=== PATIENT | male | born 1970 | race Caucasian/White ===

== ENCOUNTER 2019-12-23 15:17 | Inpatient (IN) | payer BC, SELFPAY ==
--- NOTE | ~2019-12-23 | XR_ITS ---
EXAMINATION: XR chest 1V portable DATE: 12/23/2019 16:56 INDICATION: COVID-19 pneumonia. Dyspnea. TECHNIQUE: A single frontal view of the chest was obtained. COMPARISON: None. FINDINGS: Lung volumes are small. There are patchy airspace opacities involving all lung zones bilate rally, worst in right midlung zone. No pleural effusion or pneumothorax. The heart size is normal. IMPRESSION: 1. Diffuse lung disease, consistent with pneumonia. Reviewed, dictated and finalized at location A. TRICAL HIGH TENSION TESTER
--- NOTE | ~2019-12-23 | CT_ITS ---
EXAMINATION: CTA chest PE protocol EXAM DATE: 12/24/2019 16:04 INDICATION: Hypoxia, COVID, abnormal xray. TECHNIQUE: Spiral CTA of the chest (pulmonary arteries) was performed with 100 cc Omnipaque 350 intr avenous contrast injection. Images were acquired during the pulmonary arterial phase. Coronal maxi mum intensity projection 3D-reconstructions were created by the technologist on dedicated workstation . Axial, coronal and sagittal reformatted images were reviewed. The dose-length product (DLP) for t his examination was 1030.49 mGy-cm. The exposure was tailored according to patient size (auto mA ex posure control), and iterative reconstruction (ASIR) was used as additional dose reduction technique. Correlation is made to Chest x-ray same date. FINDINGS: There are no pulmonary emboli in the 1st through 3rd order (central and interlobar) pulmon linda arteries. Some loss of attenuation in the left basilar segmental pulmonary arteries due to respi ratory motion, but no intraluminal filling defects suspected. No thoracic aortic dissection. Moderate amount of bilateral, upper lobe predominant groundglass airspace disease with small regions of confluence. Most likely COVID-19 related findings given history provided. There are no pleural or pericardial effusions. Tracheobronchial tree is patent. There is no mediastinal, hilar or axillar y lymphadenopathy. There is no pneumothorax. Heart normal in size. No evidence of coronary kaye rial calcification. There is hepatic steatosis. There is thoracic spondylosis without osteoblastic or osteolytic lesions identified. IMPRESSION: 1. Moderate amount of bilateral groundglass opacities, smaller regions confluence. Probably COVID-19 . 2. No pulmonary emboli suspected. Reviewed, dictated and finalized at location A. VERY RECRUITER IMPRESSION: 1. Moderate amount of bilateral groundglass opacities, smaller regions conflue nce. Probably COVID-19. 2. No pulmonary emboli suspected.
--- NOTE | ~2019-12-23 | XR_ITS ---
EXAMINATION: XR chest 1V portable DATE: 12/30/2019 06:18 INDICATION: COVID-19 pneumonia. Shortness of breath. TECHNIQUE: A single frontal view of the chest was obtained. COMPARISON: Chest single view 12/23/2019, chest CT 12/24/2019 FINDINGS: There are airspace opacities in all lung zones bilaterally, worst in the lower lung zones. No pleural effusion or pneumothorax. The heart size is normal. IMPRESSION: 1. Diffuse lung disease with change in distribution in right lung, consistent with pneumonia. Reviewed, dictated and finalized at location A. IST CAMP ATTENDANT IMPRESSION: 1. Diffuse lung disease with change in distribution in right lung, consistent w ith pneumonia.
[2019-12-23 15:25] VITALS: BP 181/162; PULSE 106; RESP 18; TEMP 36.4; O2SAT 95
--- NOTE | 2019-12-23 15:32 | PC.NURSE ---
PT recived a neb treatment, prior to arrival by EMS
--- NOTE | 2019-12-23 15:36 | ED.SOB ---
HPI - SOB/Dyspnea General Chief Complaint: Shortness of Breath/Dyspnea Stated Complaint: SOB/COVID + Time Seen by Provider: 12/23/19 15:36 Source: patient Mode of arrival: ambulatory Limitations: no limitations History of Present Illness HPI Narrative: Patient is a 49-year-old with a history of hypertension who presents for evaluation of shortness of breath in the setting of recent Covid diagnosis. Patient reporting he became symptomatic on December 17, with positive test results called to him 2 days ago on Thursday. Patient reports shortness of breath and difficulty breathing. Patient states he has been monitoring his oxygen saturations at home with saturations ranging between 88 to 90%. He reports shortness of breath that worsens with exertion. He denies chest pain. Patient has been on steroids and azithromycin per his primary care physician. Patient reports intermittent fever, chills and nausea. Related Data Allergies Allergy/AdvReac Type Severity Reaction Status Date / Time No Known Allergies Allergy Unknown Unverified 01/04/08 07:16 Review of Systems Review of Systems: Narrative: CONSTITUTIONAL: Fever and chills EYES: Denies visual changes, redness, or discharge. ENT: Rhinorrhea and congestion CARDIOVASCULAR: Denies chest pain, palpitations, or edema. RESPIRATORY: Cough and shortness of breath GASTROINTESTINAL: Denies abdominal pain, nausea without vomiting GENITOURINARY: Denies dysuria or hematuria. SKIN: Denies rash or itching. MUSCULOSKELETAL: Denies back pain, joint pain, reporting myalgias NEUROLOGIC: Denies headache, numbness, or weakness. FOR[facility]LY [facility] Past Medical History Medical History (Updated 12/23/19 @ 18:16 by Ute Romero MD) Hypertension Family History Family History (Updated 09/07/15 @ 23:19 by DOCTOR UNKNOWN) Mother Hypertension Family history of diabetes mellitus in first degree relative Grandparent Hypertension Malignant neoplasm of prostate Family history of lung cancer Family history of coronary artery disease Diabetes mellitus Father Family history of coronary artery disease Other Family history of malignant neoplasm of kidney Social History Social History (Updated 12/23/19 @ 16:14 by Ute Romero MD) Smoking status: Never smoker Alcohol intake: current Substance use: never Living arrangements: with family Gender identity (if verbalized by the patient): Male Exam Narrative: Exam Narrative: GENERAL: Awake, alert, conversant HEAD: Normocephalic, atraumatic. EYES: PERRLA and EOMI. ENT: Nares clear, no rhinorrhea or epistaxis. Mucous membranes moist. NECK: Supple. CHEST: No respiratory distress, breathing even and non labored, dry cough present, no tachypnea HEART: Tachycardic rate, sinus rhythm ABDOMEN:Non distended, non tender EXTREMITIES: Normal range of motion. No edema. SKIN: Warm, dry, no rash. NEURO:No focal deficits. Alert and oriented x3 Course Vital Signs Vital signs: Vital Signs Temperature 36.4 C 12/23/19 15:25 Pulse Rate 106 H 12/23/19 15:25 Respiratory Rate 18 12/23/19 15:25 Blood Pressure 181/162 H 12/23/19 15:25 Pulse Oximetry 95 12/23/19 15:25 Temperature 36.4 C 12/23/19 15:25 Pulse Rate 106 H 12/23/19 15:25 Respiratory Rate 18 12/23/19 15:25 Blood Pressure 181/162 H 12/23/19 15:25 Pulse Oximetry 95 12/23/19 15:25 MDM - SOB/Dyspnea MDM Narrative Medical decision making narrative: Patient presented for evaluation of cough and shortness of breath in the setting of known Covid diagnosis. The time of assessment, ABCs are intact and vital signs are stable. Patient currently is afebrile, no severe increased work of breathing, oxygen saturations at bedside or anywhere from 88 to 92%. IV access obtained and labs were drawn. Laboratory results show no leukocytosis, no anemia, no acute kidney injury or electrolyte derangement. Chest x-ray is very concerning for actually bacterial pneumon
--- NOTE | 2019-12-23 16:11 | ECG_ITS ---
Measurements Intervals [place] Rate: 104 P: 26 GA: 167 QRS: 2 QRSD: 106 T: -1 QT: 367 QTc: 483 Interpretive Statements SINUS TACHYCARDIA ATRIAL PREMATURE COMPLEX POSSIBLE LEFT ATRIAL ENLARGEMENT INCOMPLETE RIGHT BUNDLE BRANCH BLOCK POSSIBLE LEFT VENTRICULAR HYPERTROPHY BORDERLINE R WAVE PROGRESSION, ANTERIOR LEADS BORDERLINE ST-T WAVE ABNORMALITY- ANTEROLAT/INF LEADS ABNORMAL ECG Electronically Signed On 12-23-2019 16:43:55 GRAINER MACHINE by Wilver Carlton D.O.
[2019-12-23] MEDS: ACETAMINOPHEN 500 MG TABLET 1000 MG PO (16:21)
[2019-12-23] MEDS: ONDANSETRON INJ 4 MG/2 ML VIAL IV PUSH (16:22)
[2019-12-23 16:31] LABS: Basophils Percent Auto 0.4 % (0.2-1.2); Eosinophils Percent Auto 0.2 % (0-4.4); Hematocrit 46.8 % (42.0-52.0); Hemoglobin 16.7 g/dL (14.0-18.0); Immature Granulocyte Absolute 0.02 K/mm3 (0.00-0.031); Immature Granulocyte Percent A 0.4 % (0-0.5); Immature Platelet Fraction Pct 2.9 % (0.9-11.2); Lymphocytes Percent Auto 17.7 % (18.3-44.2); Mean Corpuscular HGB Conc 35.7 g/dl (32-36); Mean Corpuscular Hemoglobin 30.5 pg (26-34); Mean Corpuscular Volume 85.6 fl (80-100); Monocytes Absolute Auto 0.4 K/mm3 (0.1-0.6); Monocytes Percent Auto 7.4 % (2.6-8.5); Neutrophils Absolute Auto 4.2 K/mm3 (1.3-6.7); Neutrophils Percent Auto 73.9 % (45.5-73.1); Platelet Count Result 159 k/mm3 (150-375); Red Blood Count 5.47 M/mm3 (4.6-6.20); Red Cell Distribution Width 12.3 % (11.5-14.5); White Blood Count 5.6 K/mm3 (4.5-10.0)
[2019-12-23 16:33] LABS: Alveolar/Arterial O2 Gradient 54.8 mmHg; Base Excess ABG 2.9 mEq/l (+/-2.0); Fractional Inspired Oxygen 21 %; HCO3 ABG 26.4 mEq/l (22.0-26.0); Methemoglobin ABG 0.5 %THb (0-1.5); Oxygen Saturation ABG 87.7 % (95.0-100.0); Oxyhemoglobin 87.2 % THb (90.0-100.0); PCO2 ABG 37.5 mmHg (35.0-45.0); PO2 FiO2 Ratio Arterial Blood 2.38 %; Reduced Hemoglobin 11.3 %THb (0-5.0); Total Hemoglobin 17.2 g/dL (12.0-18.0); pH ABG 7.466 (7.350-7.450)
[2019-12-23 16:34] LABS: Device ROOM AIR; Modified Allen's Test Pass; Site Drawn LEFT RADIAL
[2019-12-23 16:42] LABS: Potassium 3.5 mmol/L (3.4-5.0)
[2019-12-23 16:44] LABS: Prothrombin Time 13.6 Seconds (11.1-14.7)
[2019-12-23 16:45] LABS: Partial Thromboplastin Time 34.3 SECONDS (22.3-36.8)
[2019-12-23 16:52] LABS: Troponin I < 0.012 ng/mL (0.000-0.034)
[2019-12-23 16:55] LABS: Alanine Aminotransferase 105 U/L (4-50); Albumin Level 4.1 g/dL (3.5-5.1); Alkaline Phosphatase 70 U/L (38-126); Anion Gap 11 mmol/L (8-16); Aspartate Amino Transferase 105 U/L (17-59); Bilirubin,Total 0.9 mg/dL (0.2-1.3); Blood Urea Nitrogen 15 mg/dL (9-20); Carbon Dioxide 28 mmol/L (22-30); Chloride 93 mmol/L (98-107); Estimated CRCL calculation 149 ml/min; Estimated Glomerular Filt Rate > 60; Glucose 145 mg/dL (75-110); Sodium 132 mmol/L (137-145)
--- NOTE | 2019-12-23 18:00 | PC.NURSE ---
pt placed on O2 2L by Dr Romero
[2019-12-23 20:17] VITALS: BP 135/93; PULSE 88; RESP 20; O2SAT 99
[2019-12-23 20:45] VITALS: BP 152/94; PULSE 85; RESP 20; TEMP 36.6; O2SAT 91; BMI 39.8
--- NOTE | 2019-12-23 20:45 | ADMGEN ---
This patient, Bhargav West, was admitted to [facility] Room 326-01. Patient/family oriented to hospital policies and general routines including ID bracelet, bed and alarms, visiting hours, pain management, procedures, bathroom and other care routines, personal items, smoking policy, room service/diet, and visiting hours. Information on how to activate the Rapid Response Team has been discussed. Patient/Family are encouraged to report perceived risks to care and to ask questions if they do not understand what they are told or what they should do.
--- NOTE | 2019-12-23 21:07 | PM.IMHP ---
H&P: HPI History of Present Illness Date/Time: 12/23/19 21:07 Chief complaint: COVID pneumonia Narrative: Bhargav West is a 49 year old male with PMHx significant for HTN, patient has had sob, dry cough spells for over a week now, had Covid test done that came back positive 2 days ago. He has had fevers, chills, dry cough spells, worsening sob mainly at exertion pulse ox at home has been in between 88% and 90%, denies loss of taste or smell, n/v/abdominal pain/diarrhea. Preliminary work up in ED was significant for B/L infiltrates on chest xr. Review of Systems Review of Systems: Narrative: sob, cough spells. Constitutional: Comments: fevers, chills, sweating. Eyes: Comments: no ision changes. ENT: Comments: no ear ache, no throat pain, no nasal congestion or discharge. Cardiovascular: Comments: no chest pain, no leg swelling. Respiratory: Comments: dry cough spells, sob worse at exertion. Gastrointestinal: Comments: no n/v/abdominal pain/diarrhea Musculoskeletal: Comments: no joint pain, no joint swelling. Integumentary/Breasts: Comments: no rashes. Neurologic: Comments: no sensorymotor deficit. Hematologic/Lymphatic: Comments: no LAP PMFSH Past Medical History Medical History (Updated 12/23/19 @ 18:16 by Ute Romero MD) Hypertension Family History Family History (Updated 09/07/15 @ 23:19 by DOCTOR UNKNOWN) Mother Hypertension Family history of diabetes mellitus in first degree relative Grandparent Hypertension Malignant neoplasm of prostate Family history of lung cancer Family history of coronary artery disease Diabetes mellitus Father Family history of coronary artery disease Other Family history of malignant neoplasm of kidney Social History Social History (Updated 12/23/19 @ 16:14 by Ute Romero MD) Smoking status: Never smoker Alcohol intake: current Substance use: never Living arrangements: with family Gender identity (if verbalized by the patient): Male Meds Home Medications and Allergies Home Medications Medication Instructions Recorded Confirmed Type bupropion HCl 300 mg 24 hr tablet, 300 mg PO .once daily #30 tablet 12/20/18 10/31/19 Rx extended release metformin 1,000 mg tablet 1,000 mg PO BID #180 tablet 03/02/19 10/31/19 Rx enalapril 10 1 tablet PO BID #14 tablet 10/24/19 10/31/19 Rx mg-hydrochlorothiazide 25 mg tablet metoprolol succinate 100 mg 100 mg PO DAILY #7 tablet 10/25/19 10/31/19 Rx tablet,extended release 24 hr azithromycin 250 mg tablet See Rx Instructions PO .COMPLEX #6 12/22/19 Rx tablet Allergies Allergy/AdvReac Type Severity Reaction Status Date / Time No Known Allergies Allergy Unknown Unverified 01/04/08 07:16 Vital Signs Vital Signs - 24 hr 12/23/19 15:25 12/23/19 20:17 Temperature 97.6 F Pulse Rate 106 H 88 Respiratory Rate 18 20 Blood Pressure 181/162 H 135/93 H Pulse Oximetry 95 99 Exam Narrative: Exam Narrative: Sitting in bed acutely ill looking. Const: General: well developed, alert, awake, Physically active and other (Acutely ill looking.) Nutritional Appearance: overweight Orientation/consciousness: patient oriented x3 Limitations: no limitations HENMT: Head: normal to inspection and normocephalic Ears: hearing grossly normal bilaterally General nose exam: Normal external nose present Face and sinus: normal facial exam Eyes: General: appearance normal, both eyes and all related structures Pupils: Equal, round and reactive pupils present EOM: EOMs intact bilaterally Neck: Neck: full ROM, no lymphadenopathy and no JVD Resp: Effort & Inspection: able to speak in complete sentences and Actively coughing Auscultation: diminished lung sounds Cardio: Jugular venous distension: no JVD Rate: regular rate Rhythm: regular rhythm Heart sounds: S1 normal heart sound present and S2 normal heart sound present GI: Inspection: normal to inspection GI Palp: Yes Soft to p
[2019-12-24] VITALS (14 sets, daily range): BP systolic 127–162; BP diastolic 68–92; PULSE 70–99; RESP 18–24; TEMP 36.1–37; O2SAT 85–98
--- NOTE | 2019-12-24 07:34 | PC.NURSE ---
Called Dr Brasher about pt spo2 was at 85% on 2l NC . Increased to 5L NC. Pt up to 90%. pt requesting breathing TX. Doctor said he will look into his chart.and medications.
[2019-12-24] MEDS: DEXAMETHASONE 2 MG TABLET 6 MG PO (09:05)
[2019-12-24] MEDS: hydroCHLOROthiazide 25 MG TABLET PO (09:06)
[2019-12-24] MEDS: THERAPEUTIC MULTIVITAMINS/MINERALS TAB (*BKC) 1 TABLET PO (09:06)
[2019-12-24] MEDS: guaiFENesin 600 MG/DEXTROMETHORPHAN 30 MG SR TAB 12 HR 1 TAB PO ×2 (09:06→21:41)
[2019-12-24] MEDS: METOPROLOL SUCCINATE EXT REL 100 MG TABCR PO (09:06)
[2019-12-24] MEDS: ASPIRIN 81 MG ENTERIC TABLET PO (09:07)
[2019-12-24] MEDS: ENALAPRIL MALEATE 10 MG TABLET PO (09:07)
[2019-12-24] MEDS: REMDESIVIR 200 MG/NS 250 ML 200 MG/250 ML BAG 250 MG IVPB (09:11)
[2019-12-24] MEDS: ALBUTEROL SULFATE (*SP) AEROSOL 1 PUFF 2 PUFF INHALATION ×4 (09:12→21:55)
--- NOTE | 2019-12-24 14:40 | PM.IMPN ---
Progress Note: A&P Assessment and Plan (1) COVID-19: Code(s): U07.1 - COVID-19 Status: Acute Assessment and Plan: -----day 6 of COVID-19 symptoms per patient. He has been needing increasing oxygen throughout the day and is now on 15 L high-flow with non-rebreather. He feels okay but his oxygen saturations are just at 90 with this. He has been started on Remdesivir and Decadron and is on continuous pulse ox. We will continue with Lovenox but change it to b.i.d. and will order Protonix. LFTs are elevated likely due to infection but will watch closely while on Remdesivir. CXR worrisome, will order CTA. (2) Pneumonia: Code(s): J18.9 - Pneumonia, unspecified organism Status: Acute Assessment and Plan: -----2/2 to above (3) Acute respiratory failure with hypoxia: Code(s): J96.01 - Acute respiratory failure with hypoxia Status: Acute Assessment and Plan: -----Pt needing increasing o2 2/2 to above will do CTA to r/u PE (4) Hypertension: Code(s): I10 - Essential (primary) hypertension Status: Inactive Assessment and Plan: -----Last bp 150/92, continue enalapril, metoprolol, and HCTZ Time Spent With Patient Time with patient: 25 - 35 minutes Subjective Date/time seen: 12/24/19 14:40 Interval history: Pt is a 49-year-old male here with COVID-19 pneumonia. Patient was seen today while eating lunch. Although he does not feel short of breath, his oxygen saturation was consistently a 80% while eating his lunch. He was placed on high-flow nasal cannula with the a non-rebreather which improved his oxygen and he stated he felt okay. He says he continues to cough and cannot take deep breaths because it causes him to cough but has no chest pain or pleuritic pain. His appetite has decreased but he has been able to eat and drink more but he has to eat slow as he becomes very short of breath when doing so. No diarrhea, constipation, nausea or vomiting. Review of Systems Review of Systems: All systems reviewed & are unremarkable except as noted in HPI and below Exam Narrative: Exam Narrative: General: Well developed well nourished patient in NAD HEENT: normocephalic Neck: supple Neuro: Alert and oriented x4 CV:RRR Resp:slightly decreased breath sounds bilaterally. pt is no respiratory distress with no retractions. continious pulse ox was down to 80 but improved with 15L high flow with non-rebreather Abd: Soft, non distended. No pain to palpation. Positive bowel sounds Extremities: No swelling, erythema, or pain to palpation. Objective Data Vital Signs Vital Signs: Vital Signs - 24 hr 12/23/19 15:25 12/23/19 20:17 12/23/19 20:45 Temperature 97.6 F 97.9 F Pulse Rate 106 H 88 85 Respiratory Rate 18 20 20 Blood Pressure 181/162 H 135/93 H 152/94 H Pulse Oximetry 95 99 91 12/24/19 00:00 12/24/19 00:26 12/24/19 04:22 Temperature 97.0 F L Pulse Rate 83 Respiratory Rate 18 Blood Pressure 142/82 H Pulse Oximetry 90 90 85 L 12/24/19 06:00 12/24/19 09:00 12/24/19 09:06 Temperature 98.3 F Pulse Rate 92 70 Respiratory Rate 20 Blood Pressure 150/92 H Pulse Oximetry 90 90 12/24/19 09:17 Temperature Pulse Rate Respiratory Rate Blood Pressure Pulse Oximetry 90 Intake/Output Intake/Output: Intake & Output 12/21/19 12/22/19 12/23/19 12/24/19 23:59 23:59 23:59 23:59 Intake Total 300 550 Balance 300 550 Meds/Results Medications: Active Medications Generic Name Dose Route Start Last Admin Trade Name Freq PRN Reason Stop Dose Admin Acetaminophen 650 mg 12/23/19 18:11 Acetaminophen 325 Mg Tablet PO Q4H PRN Mild Pain (1-3) or Fever Albuterol 2 puff 12/24/19 08:00 12/24/19 11:31 Albuterol Sulfate (*Sp) Aerosol 1 Puff INHALATION 2 puff QIDRT ROSA MARIA Administration Aspirin 81 mg 12/24/19 09:00 12/24/19 09:07 Aspirin 81 Mg Enteric Tablet PO 01/23/20
[2019-12-24] MEDS: ENOXAPARIN 40 MG/0.4 ML SYRINGE SUB-Q ×2 (15:45→21:41)
[2019-12-25] VITALS (12 sets, daily range): BP systolic 119–152; BP diastolic 46–85; PULSE 85–106; RESP 20–30; TEMP 36.1–37.3; O2SAT 82–98
[2019-12-25 07:35] LABS: Hematocrit 44.2 % (42.0-52.0); Hemoglobin 15.3 g/dL (14.0-18.0); Hemoglobin A1C 5.6 % (<5.7); Mean Corpuscular HGB Conc 34.6 g/dl (32-36); Mean Corpuscular Hemoglobin 30.1 pg (26-34); Mean Platelet Volume 9.6 fl (7.4-10.4); Platelet Count Result 204 k/mm3 (150-375); Red Blood Count 5.08 M/mm3 (4.6-6.20); Red Cell Distribution Width 12.5 % (11.5-14.5)
[2019-12-25 07:51] LABS: D Dimer 0.44 ug/mL (<0.48)
[2019-12-25 07:58] LABS: Alanine Aminotransferase 103 U/L (4-50); Albumin Level 3.8 g/dL (3.5-5.1); Alkaline Phosphatase 63 U/L (38-126); Anion Gap 7 mmol/L (8-16); Aspartate Amino Transferase 101 U/L (17-59); Bilirubin,Total 0.7 mg/dL (0.2-1.3); Blood Urea Nitrogen 29 mg/dL (9-20); CRP 4.3 mg/dL (<1.0); Calcium 9.1 mg/dL (8.4-10.2); Carbon Dioxide 34 mmol/L (22-30); Chloride 94 mmol/L (98-107); Estimated CRCL calculation 148 ml/min; Estimated Glomerular Filt Rate > 60; Glucose 142 mg/dL (75-110); Magnesium 2.4 mg/dL (1.6-2.3); Potassium 3.9 mmol/L (3.4-5.0); Sodium 135 mmol/L (137-145)
[2019-12-25 08:10] LABS: Alanine Aminotransferase 106 U/L (4-50)
[2019-12-25] MEDS: hydroCHLOROthiazide 25 MG TABLET PO (08:33)
[2019-12-25] MEDS: DEXAMETHASONE 2 MG TABLET 6 MG PO (08:33)
[2019-12-25] MEDS: ENALAPRIL MALEATE 10 MG TABLET PO (08:33)
[2019-12-25] MEDS: guaiFENesin 600 MG/DEXTROMETHORPHAN 30 MG SR TAB 12 HR 1 TAB PO ×2 (08:34→22:03)
[2019-12-25] MEDS: REMDESIVIR 100 MG/NS 250 ML 100 MG/250 ML BAG 250 MG IVPB (08:34)
[2019-12-25] MEDS: THERAPEUTIC MULTIVITAMINS/MINERALS TAB (*BKC) 1 TABLET PO (08:34)
[2019-12-25] MEDS: ASPIRIN 81 MG ENTERIC TABLET PO (08:34)
[2019-12-25] MEDS: ENOXAPARIN 40 MG/0.4 ML SYRINGE SUB-Q ×2 (08:34→21:45)
[2019-12-25] MEDS: PANTOPRAZOLE 40 MG TABLET PO (08:35)
[2019-12-25] MEDS: METOPROLOL SUCCINATE EXT REL 100 MG TABCR PO (08:35)
[2019-12-25] MEDS: ALBUTEROL SULFATE (*SP) AEROSOL 1 PUFF 2 PUFF INHALATION ×4 (08:43→23:07)
[2019-12-25 10:03] LABS: Ferritin > 2000.00 ng/mL (17.9-464)
--- NOTE | 2019-12-25 17:14 | PM.IMPN ---
Progress Note: A&P Assessment and Plan (1) COVID-19: Code(s): U07.1 - COVID-19 Status: Acute Assessment and Plan: -----day 7 of COVID-19 symptoms per patient. He continues to be on 15 L high-flow with non-rebreather. I have ordered COVID plasma for the pt. Continue Remdesivir and Decadron as well as continuous pulse ox. Continue lovenox and protonix. LFTs are elevated likely due to infection but will watch closely while on Remdesivir. CTA shows no PE. (2) Pneumonia: Code(s): J18.9 - Pneumonia, unspecified organism Status: Acute Assessment and Plan: -----2/2 to above (3) Acute respiratory failure with hypoxia: Code(s): J96.01 - Acute respiratory failure with hypoxia Status: Acute Assessment and Plan: -----2/2 COVID. see above (4) Hypertension: Code(s): I10 - Essential (primary) hypertension Status: Inactive Assessment and Plan: -----Last bp 129/68, continue enalapril, metoprolol, and HCTZ Subjective Date/time seen: 12/25/19 17:14 Interval history: Pt is a 49-year-old male here with COVID-19 pneumonia. Patient was seen today and states he is feeling better than he did yesterday. He doesn't feel SOB unless he is talking too much or eating. He preivously lost his smell and taste but it has returned. He denies CP, fevers, chills, diarrhea, constipation or leg swelling. Exam Narrative: Exam Narrative: General: Well developed well nourished patient in NAD HEENT: normocephalic Neck: supple Neuro: Alert and oriented x4 CV:RRR Resp:slightly decreased breath sounds bilaterally. pt is no respiratory distress with no retractions. continuous pulse ox 94 on 15L Abd: Soft, non distended. No pain to palpation. Positive bowel sounds Extremities: No swelling, erythema, or pain to palpation. Objective Data Vital Signs Vital Signs: Vital Signs - 24 hr 12/24/19 21:00 12/24/19 21:40 12/24/19 22:47 Temperature 98.1 F Pulse Rate 97 96 Respiratory Rate 24 H 22 H Blood Pressure 162/72 H Pulse Oximetry 98 94 94 12/25/19 00:38 12/25/19 01:00 12/25/19 04:00 Temperature 99 F 98.4 F Pulse Rate 96 96 Respiratory Rate 20 22 H Blood Pressure 119/46 L 152/68 H Pulse Oximetry 98 97 97 12/25/19 08:00 12/25/19 08:30 12/25/19 08:35 Temperature 99.1 F Pulse Rate 100 106 H Respiratory Rate 24 H Blood Pressure 141/77 H Pulse Oximetry 93 91 12/25/19 08:44 12/25/19 12:00 12/25/19 16:00 Temperature 98.8 F 97.0 F L Pulse Rate 97 95 Respiratory Rate 22 H 20 Blood Pressure 139/85 129/68 Pulse Oximetry 90 95 93 Intake/Output Intake/Output: Intake & Output 12/22/19 12/23/19 12/24/19 12/25/19 23:59 23:59 23:59 23:59 Intake Total 300 1580 1370 Output Total 600 1000 Balance 300 980 370 Meds/Results Medications: Active Medications Generic Name Dose Route Start Last Admin Trade Name Freq PRN Reason Stop Dose Admin Acetaminophen 650 mg 12/23/19 18:11 Acetaminophen 325 Mg Tablet PO Q4H PRN Mild Pain (1-3) or Fever Albuterol 2 puff 12/24/19 08:00 12/25/19 16:35 Albuterol Sulfate (*Sp) Aerosol 1 Puff INHALATION 2 puff QIDRT ROSA MARIA Administration Aspirin 81 mg 12/24/19 09:00 12/25/19 08:34 Aspirin 81 Mg Enteric Tablet PO 01/23/20 09:01 81 mg DAILY ROSA MARIA Administration Dexamethasone 6 mg 12/24/19 08:00 12/25/19 08:33 Dexamethasone 2 Mg Tablet PO 01/02/20 08:01 6 mg DAILY@0800 ROSA MARIA Administration Enalapril Maleate 10 mg 12/25/19 09:00 12/25/19 08:33 Enalapril Maleate 10 Mg Tablet PO 10 mg QAM ROSA MARIA Administration Enoxaparin Sodium 40 mg 12/24/19 21:00 12/25/19 08:34 Enoxaparin 40 Mg/0.4 Ml Syringe SUB-Q 40 mg Q12HR ROSA MARIA Administration Guaifenesin/Dextromethorphan 1 tab 12/24/19 09:00 12/25/19 08:34 Guaifenesin 600 Mg/Dextromethorphan 30 Mg Sr Tab 12 Hr PO 1 tab Q12HR ROSA MARIA Administration Hydrochlorothiazide 25 mg
[2019-12-26] VITALS (25 sets, daily range): BP systolic 114–159; BP diastolic 65–90; PULSE 72–103; RESP 19–50; TEMP 36.1–37.7; O2SAT 83–95
[2019-12-26] MEDS: ALBUTEROL SULFATE (*SP) AEROSOL 1 PUFF 2 PUFF INHALATION ×3 (03:21→14:59)
[2019-12-26 07:15] LABS: Hematocrit 43.8 % (42.0-52.0); Mean Corpuscular HGB Conc 34.2 g/dl (32-36); Mean Corpuscular Hemoglobin 30.7 pg (26-34); Mean Corpuscular Volume 89.6 fl (80-100); Mean Platelet Volume 9.5 fl (7.4-10.4); Platelet Count Result 215 k/mm3 (150-375); Red Blood Count 4.89 M/mm3 (4.6-6.20); White Blood Count 11.9 K/mm3 (4.5-10.0)
[2019-12-26 07:37] LABS: Alanine Aminotransferase 112 U/L (4-50); Albumin Level 3.7 g/dL (3.5-5.1); Alkaline Phosphatase 68 U/L (38-126); Anion Gap 9 mmol/L (8-16); Aspartate Amino Transferase 108 U/L (17-59); Bilirubin,Total 0.6 mg/dL (0.2-1.3); Blood Urea Nitrogen 23 mg/dL (9-20); CRP 5.1 mg/dL (<1.0); Calcium 9.1 mg/dL (8.4-10.2); Carbon Dioxide 32 mmol/L (22-30); Chloride 96 mmol/L (98-107); Estimated CRCL calculation 168 ml/min; Estimated Glomerular Filt Rate > 60; Glucose 139 mg/dL (75-110); Lactate Dehydrogenase 958 U/L (313-618); Potassium 3.8 mmol/L (3.4-5.0); Sodium 137 mmol/L (137-145)
[2019-12-26] MEDS: ENOXAPARIN 40 MG/0.4 ML SYRINGE SUB-Q ×2 (09:17→20:42)
[2019-12-26] MEDS: DEXAMETHASONE 2 MG TABLET 6 MG PO (09:18)
[2019-12-26] MEDS: hydroCHLOROthiazide 25 MG TABLET PO (09:19)
[2019-12-26] MEDS: METOPROLOL SUCCINATE EXT REL 100 MG TABCR PO (09:20)
[2019-12-26] MEDS: ASPIRIN 81 MG ENTERIC TABLET PO (09:20)
[2019-12-26] MEDS: PANTOPRAZOLE 40 MG TABLET PO (09:20)
[2019-12-26] MEDS: THERAPEUTIC MULTIVITAMINS/MINERALS TAB (*BKC) 1 TABLET PO (09:20)
[2019-12-26] MEDS: ENALAPRIL MALEATE 10 MG TABLET PO (09:20)
[2019-12-26] MEDS: guaiFENesin 600 MG/DEXTROMETHORPHAN 30 MG SR TAB 12 HR 1 TAB PO ×2 (09:21→20:42)
[2019-12-26] MEDS: BENZONATATE 100 MG CAPSULE PO ×3 (09:22→17:33)
[2019-12-26 09:34] LABS: Ferritin > 2000.00 ng/mL (17.9-464)
--- NOTE | 2019-12-26 09:55 | PC.NURSE ---
Patients O2 Sat running 70-85 % changed patient to forehead probe. O2 sat slowly went up patient resp-32-36. Patient O2 Sat drops when patient tried to eat or move in bed. Instructed not to take non rebreather off.
[2019-12-26] MEDS: REMDESIVIR 100 MG/NS 250 ML 100 MG/250 ML BAG 250 MG IVPB (10:05)
[2019-12-26] MEDS: ACETAMINOPHEN 325 MG TABLET 650 MG PO (11:12)
[2019-12-26] MEDS: SODIUM CHLORIDE 0.9% IV 250 ML 30 ML IV CONT (11:17)
--- NOTE | 2019-12-26 13:30 | PM.IMPN ---
Progress Note: A&P Assessment and Plan (1) COVID-19: Code(s): U07.1 - COVID-19 Status: Acute Assessment and Plan: -----day 8 of COVID-19 symptoms per patient. He continues to be on 15 L high-flow with non-rebreather. he continued to be hypoxic throughout the night occasionally and any time he has any movement or even tries to eat. He is unable to eat breakfast because of it. For this reason, I am going is try and start Airvo in hopes a little pressure will help him. He received convalescent plasma today as well. Continue Remdesivir and Decadron as well as continuous pulse ox. Continue lovenox and protonix. LFTs are elevated likely due to infection but will watch closely while on Remdesivir. CTA shows no PE. (2) Pneumonia: Code(s): J18.9 - Pneumonia, unspecified organism Status: Acute Assessment and Plan: -----2/2 to above (3) Acute respiratory failure with hypoxia: Code(s): J96.01 - Acute respiratory failure with hypoxia Status: Acute Assessment and Plan: -----2/2 COVID. see above (4) Hypertension: Code(s): I10 - Essential (primary) hypertension Status: Inactive Assessment and Plan: -----Last bp 136/78, continue enalapril, metoprolol, and HCTZ Subjective Date/time seen: 12/26/19 13:30 Interval history: Pt is a 49-year-old male here with COVID-19 pneumonia. Patient was seen today and states he is coughing less. He still feels very short of breath and cannot even eat without becoming hypoxic. He is unable to walk to the bathroom and has been mostly bed-bound. With that being said, he is in good spirits and feels okay. No chest pain. He has not had a bowel movement yet today. Exam Narrative: Exam Narrative: General: Well developed well nourished patient in NAD HEENT: normocephalic Neck: supple Neuro: Alert and oriented x4 CV:RRR Resp:slightly decreased breath sounds bilaterally. pt is no respiratory distress with no retractions. continuous pulse ox 88 on 15 L high-flow with non-rebreather Abd: Soft, non distended. No pain to palpation. Positive bowel sounds Extremities: No swelling, erythema, or pain to palpation. Objective Data Vital Signs Vital Signs: Vital Signs - 24 hr 12/25/19 16:00 12/25/19 18:00 12/25/19 20:00 Temperature 97.0 F L 98.0 F Pulse Rate 95 85 Respiratory Rate 20 24 H Blood Pressure 129/68 122/69 Pulse Oximetry 93 97 93 12/26/19 00:00 12/26/19 02:30 12/26/19 03:21 Temperature 98.9 F Pulse Rate 91 89 Respiratory Rate 20 30 H Blood Pressure 133/65 Pulse Oximetry 86 L 88 L 91 12/26/19 04:00 12/26/19 09:02 12/26/19 09:09 Temperature 98.1 F 99.1 F Pulse Rate 92 101 H Respiratory Rate 22 H 20 Blood Pressure 134/74 159/79 H Pulse Oximetry 89 L 94 88 L 12/26/19 09:20 12/26/19 11:12 12/26/19 11:28 Temperature 99.1 F 98.5 F Pulse Rate 103 H 92 Respiratory Rate 24 H Blood Pressure 148/84 H Pulse Oximetry 88 L 91 12/26/19 11:44 12/26/19 12:12 12/26/19 12:44 Temperature 99.9 F H 98.8 F 98.8 F Pulse Rate 94 91 Respiratory Rate 22 H 22 H Blood Pressure 137/79 140/85 Pulse Oximetry 92 91 12/26/19 13:08 Temperature 98.9 F Pulse Rate 88 Respiratory Rate 20 Blood Pressure 136/78 Pulse Oximetry 91 Intake/Output Intake/Output: Intake & Output 12/23/19 12/24/19 12/25/19 12/26/19 23:59 23:59 23:59 23:59 Intake Total 300 1580 3110 801 Output Total 600 2350 1700 Balance 300 541 580 -269 Meds/Results Medications: Active Medications Generic Name Dose Route Start Last Admin Trade Name Freq PRN Reason Stop Dose Admin Acetaminophen 650 mg 12/23/19 18:11 12/26/19 11:12 Acetaminophen 325 Mg Tablet PO 650 mg Q4H PRN Administration Mild Pain (1-3) or Fever Albuterol 2 puff 12/25/19 20:00 12/26/19 03:21 Albuterol Sulfate (*Sp) Aerosol 1 Puff INHALATION 2 puff Q6HRT ROSA MARIA Administration Aspirin 81 mg 11
--- NOTE | 2019-12-26 13:43 | PC.NURSE ---
This patient, Bhargav West, was transferred to IMU 214-1 on 12/26/19 at 1330. Personal belongings sent with patient. Report given to Ruthie OLIVARES. Appropriate documentation sent with patient.
[2019-12-26 16:29] LABS: Glucose Point of Care 194 (65-105)
[2019-12-26] MEDS: ALBUTEROL SULFATE NEB 2.5 MG/0.5 ML INH 5 MG INHALATION (19:41)
[2019-12-27] VITALS (31 sets, daily range): BP systolic 114–139; BP diastolic 56–94; PULSE 61–88; RESP 16–50; TEMP 35.5–36.6; O2SAT 90–97
[2019-12-27] MEDS: ALBUTEROL SULFATE NEB 2.5 MG/0.5 ML INH 5 MG INHALATION ×4 (01:19→20:31)
--- NOTE | 2019-12-27 03:10 | PC.NURSE ---
Respiratory increased bipap to 90%. Pt called out about 30min later stating he can't keep doing the bipap hes breathing to fast and is gonna hyperventilate. Pt has been tachypneic throughout the night so I called Dr. Ray. We went in to see the pt together. He said he suddenly felt better and would call out if he felt different. He did look better. I stayed and talked to him for a min and gave him a drink of water. He is still on bipap at 90% currently sating 97%.
[2019-12-27] MEDS: ENOXAPARIN 40 MG/0.4 ML SYRINGE SUB-Q ×2 (09:09→20:08)
[2019-12-27] MEDS: METOPROLOL SUCCINATE EXT REL 100 MG TABCR PO (09:10)
[2019-12-27] MEDS: ASPIRIN 81 MG ENTERIC TABLET PO (09:10)
[2019-12-27] MEDS: THERAPEUTIC MULTIVITAMINS/MINERALS TAB (*BKC) 1 TABLET PO (09:10)
[2019-12-27] MEDS: PANTOPRAZOLE 40 MG TABLET PO (09:10)
[2019-12-27] MEDS: guaiFENesin 600 MG/DEXTROMETHORPHAN 30 MG SR TAB 12 HR 1 TAB PO ×2 (09:10→20:08)
[2019-12-27] MEDS: BENZONATATE 100 MG CAPSULE PO ×3 (09:10→16:34)
[2019-12-27] MEDS: REMDESIVIR 100 MG/NS 250 ML 100 MG/250 ML BAG 250 MG IVPB (09:10)
[2019-12-27] MEDS: ENALAPRIL MALEATE 10 MG TABLET PO (09:10)
[2019-12-27] MEDS: DEXAMETHASONE 2 MG TABLET 6 MG PO (09:11)
[2019-12-27] MEDS: hydroCHLOROthiazide 25 MG TABLET PO (09:11)
[2019-12-27 09:32] LABS: Hematocrit 46.6 % (42.0-52.0); Mean Corpuscular HGB Conc 34.3 g/dl (32-36); Mean Corpuscular Hemoglobin 30.1 pg (26-34); Mean Corpuscular Volume 87.8 fl (80-100); Mean Platelet Volume 9.1 fl (7.4-10.4); Platelet Count Result 267 k/mm3 (150-375); Red Blood Count 5.31 M/mm3 (4.6-6.20); Red Cell Distribution Width 12.7 % (11.5-14.5)
[2019-12-27 09:46] LABS: Alanine Aminotransferase 168 U/L (4-50); Alkaline Phosphatase 82 U/L (38-126); Anion Gap 6 mmol/L (8-16); Aspartate Amino Transferase 142 U/L (17-59); Bilirubin,Total 0.9 mg/dL (0.2-1.3); Blood Urea Nitrogen 22 mg/dL (9-20); CRP 4.8 mg/dL (<1.0); Calcium 9.5 mg/dL (8.4-10.2); Carbon Dioxide 36 mmol/L (22-30); Chloride 96 mmol/L (98-107); Estimated CRCL calculation 193 ml/min; Estimated Glomerular Filt Rate > 60; Glucose 115 mg/dL (75-110); Magnesium 2.5 mg/dL (1.6-2.3); Potassium 4.2 mmol/L (3.4-5.0); Sodium 138 mmol/L (137-145)
--- NOTE | 2019-12-27 10:38 | PM.IMPN ---
Progress Note: A&P Assessment and Plan (1) COVID-19: Code(s): U07.1 - COVID-19 Status: Acute Assessment and Plan: Symptoms began around 12/17/19, COVID positive 12/20 per patient. Imaging shows bilateral pneumonia, CTA shows no evidence of PE. Last evening he desaturated on 15 L high-flow with non-rebreather and continuous BiPAP was initiated. This morning he remains on continuous BiPAP, trial back to non-rebreather late this afternoon and monitor continuous pulse ox. Continue Remdesivir (day 4) and dexamethasone (day 5). Received convalescent plasma 12/25. Continue to monitor with continuous pulse ox. DVT prophylaxis with Lovenox. GI prophylaxis with Protonix. Continue supportive therapy with Mucinex, Tessalon Perles, zinc and vitamin-C and D supplementation. Mild transaminitis is noted, monitor daily during remdesivir therapy. (2) Pneumonia: Code(s): J18.9 - Pneumonia, unspecified organism Status: Acute Assessment and Plan: Secondary to COVID-19. See above. (3) Acute respiratory failure with hypoxia: Code(s): J96.01 - Acute respiratory failure with hypoxia Status: Acute Assessment and Plan: Secondary to COVID-19 pneumonia. See above. (4) Hypertension: Code(s): I10 - Essential (primary) hypertension Status: Inactive Assessment and Plan: Blood pressure stable, last 126/79. Continue his home regimen with enalapril, metoprolol, and HCTZ. Subjective Date/time seen: 12/27/19 0900 Interval history: Mr. West is a 49yo M admitted for acute respiratory failure secondary to COVID-19 pneumonia. He has been on continuous BiPAP overnight and this morning. He feels that his breathing is stable however he feels like he is breathing fast because of the BiPAP. He denies chest pain. Slept okay sitting in recliner. Denies nausea or vomiting, had a normal bowel movement. Review of Systems Review of Systems: All systems reviewed & are unremarkable except as noted in HPI and below Exam Narrative: Exam Narrative: General: Male resting semi-recumbent in bedside recliner in no acute distress. HEENT: Normocephalic, EOMI, oral mucosa moist. Cardiovascular: Rate and rhythm are regular. Telemetry review shows sinus rhythm, rate 78 bpm. Respiratory: Diminished breath sounds bilaterally. Tachypneic. On continuous BiPAP. Abdomen: Soft, non-tender, non-distended, bowel sounds present. Extremities: Peripheral pulses intact. No edema. Neuro: No focal neurological deficits. Speech is clear. Objective Data Vital Signs Vital Signs: Last Vital Signs Temp 96.5 F L 12/27/19 12:00 Pulse 78 12/27/19 15:13 Resp 37 H 12/27/19 15:13 BP 126/79 12/27/19 12:00 Pulse Ox 94 12/27/19 15:13 Intake/Output Intake/Output: Intake & Output 12/24/19 12/25/19 12/26/19 12/27/19 23:59 23:59 23:59 23:59 Intake Total 1580 3110 1601 Output Total 600 2350 2675 2500 Balance 980 760 -1074 -2500 Meds/Results Medications: Active Medications Generic Name Dose Route Start Last Admin Trade Name Freq PRN Reason Stop Dose Admin Acetaminophen 650 mg 12/27/19 09:30 Acetaminophen 325 Mg Tablet PO Q4H PRN Pain Rated 5 or Less Hydrocodone Bitart/Acetaminophen 1 tab 12/27/19 09:25 Hydrocodone/Acetaminophen (*Crx) 7.5-325 Mg Tablet PO Q6H PRN Pain Rated 6 or Greater Albuterol 2 puff 12/26/19 18:00 Albuterol Sulfate (*Sp) Aerosol 1 Puff INHALATION Q6HRT PRN Shortness Of Breath Or Wheezing Albuterol 5 mg 12/26/19 20:00 12/27/19 09:11 Albuterol Sulfate Neb 2.5 Mg/0.5 Ml Inh INHALATION 5 mg Q6HRT ROSA MARIA Administration Aspirin 81 mg 12/24/19 09:00 12/27/19 09:10 Aspirin 81 Mg Enteric Tablet PO 01/23/20 09:01 81 mg DAILY ROSA MARIA A
[2019-12-27 16:16] LABS: Alveolar/Arterial O2 Gradient 603.6 mmHg; Base Excess ABG 0.8 mEq/l (+/-2.0); Carboxyhemoglobin 0.3 % THb (0-2.0); Device HIGH FLOW THERAPY; Fractional Inspired Oxygen 100 %; HCO3 ABG 23.9 mEq/l (22.0-26.0); Methemoglobin ABG 0.2 %THb (0-1.5); Modified Allen's Test Pass; Oxygen Content ABG 22.4 %vol (16.0-22.0); Oxygen Saturation ABG 95.9 % (95.0-100.0); Oxyhemoglobin 94.9 % THb (90.0-100.0); PO2 ABG 75.4 mmHg (80.0-100.0); PO2 FiO2 Ratio Arterial Blood 0.75 %; Reduced Hemoglobin 4.6 %THb (0-5.0); Site Drawn RIGHT RADIAL; Total Hemoglobin 16.8 g/dL (12.0-18.0); pH ABG 7.464 (7.350-7.450)
[2019-12-27] MEDS: ASCORBIC ACID 500 MG TABLET PO (16:33)
[2019-12-27] MEDS: ZINC SULFATE 220 MG CAPSULE PO (16:33)
[2019-12-27] MEDS: CHOLECALCIFEROL 1,000 UNITS TABLET 1000 UNITS PO (16:34)
[2019-12-27 17:16] LABS: Ferritin > 2000.00 ng/mL (17.9-464)
[2019-12-28] VITALS (24 sets, daily range): BP systolic 113–126; BP diastolic 63–78; PULSE 59–81; RESP 16–38; TEMP 36.2–37.2; O2SAT 82–100
[2019-12-28] MEDS: ALBUTEROL SULFATE NEB 2.5 MG/0.5 ML INH 5 MG INHALATION ×4 (02:27→20:52)
[2019-12-28 05:01] LABS: Basophils Absolute Auto 0.1 K/mm3 (0.0-0.1); Basophils Percent Auto 0.5 % (0.2-1.2); Eosinophils Percent Auto 0.3 % (0-4.4); Hematocrit 45.9 % (42.0-52.0); Hemoglobin 15.7 g/dL (14.0-18.0); Immature Granulocyte Absolute 0.37 K/mm3 (0.00-0.031); Immature Granulocyte Percent A 3.2 % (0-0.5); Lymphocytes Absolute Auto 0.96 K/mm3 (0.9-3.2); Lymphocytes Percent Auto 8.4 % (18.3-44.2); Mean Corpuscular HGB Conc 34.2 g/dl (32-36); Mean Corpuscular Hemoglobin 30.4 pg (26-34); Mean Platelet Volume 9.3 fl (7.4-10.4); Monocytes Absolute Auto 0.6 K/mm3 (0.1-0.6); Monocytes Percent Auto 5.1 % (2.6-8.5); Neutrophils Absolute Auto 9.5 K/mm3 (1.3-6.7); Neutrophils Percent Auto 82.5 % (45.5-73.1); Platelet Count Result 268 k/mm3 (150-375); Red Blood Count 5.16 M/mm3 (4.6-6.20); Red Cell Distribution Width 12.7 % (11.5-14.5); White Blood Count 11.5 K/mm3 (4.5-10.0)
[2019-12-28 05:11] LABS: Partial Thromboplastin Time 27.3 SECONDS (22.3-36.8)
[2019-12-28 05:17] LABS: Alanine Aminotransferase 155 U/L (4-50); Albumin Level 3.6 g/dL (3.5-5.1); Alkaline Phosphatase 85 U/L (38-126); Anion Gap 5 mmol/L (8-16); Aspartate Amino Transferase 132 U/L (17-59); Bilirubin,Total 0.7 mg/dL (0.2-1.3); Blood Urea Nitrogen 25 mg/dL (9-20); Carbon Dioxide 33 mmol/L (22-30); Chloride 99 mmol/L (98-107); Estimated CRCL calculation 168 ml/min; Estimated Glomerular Filt Rate > 60; Glucose 133 mg/dL (75-110); Magnesium 2.5 mg/dL (1.6-2.3); Potassium 4.1 mmol/L (3.4-5.0); Sodium 137 mmol/L (137-145)
[2019-12-28 07:55] LABS: Ferritin > 2000.00 ng/mL (17.9-464)
[2019-12-28] MEDS: DEXAMETHASONE 2 MG TABLET 6 MG PO (10:23)
[2019-12-28] MEDS: METOPROLOL SUCCINATE EXT REL 100 MG TABCR PO (10:23)
[2019-12-28] MEDS: ENOXAPARIN 40 MG/0.4 ML SYRINGE SUB-Q ×2 (10:23→22:13)
[2019-12-28] MEDS: guaiFENesin 600 MG/DEXTROMETHORPHAN 30 MG SR TAB 12 HR 1 TAB PO ×2 (10:23→22:13)
[2019-12-28] MEDS: hydroCHLOROthiazide 25 MG TABLET PO (10:23)
[2019-12-28] MEDS: THERAPEUTIC MULTIVITAMINS/MINERALS TAB (*BKC) 1 TABLET PO (10:23)
[2019-12-28] MEDS: ASCORBIC ACID 500 MG TABLET PO (10:24)
[2019-12-28] MEDS: BENZONATATE 100 MG CAPSULE PO ×3 (10:24→16:32)
[2019-12-28] MEDS: ENALAPRIL MALEATE 10 MG TABLET PO (10:24)
[2019-12-28] MEDS: PANTOPRAZOLE 40 MG TABLET PO (10:24)
[2019-12-28] MEDS: CHOLECALCIFEROL 1,000 UNITS TABLET 1000 UNITS PO (10:24)
[2019-12-28] MEDS: ASPIRIN 81 MG ENTERIC TABLET PO (10:24)
[2019-12-28] MEDS: ZINC SULFATE 220 MG CAPSULE PO (10:25)
[2019-12-28] MEDS: REMDESIVIR 100 MG/NS 250 ML 100 MG/250 ML BAG 250 MG IVPB (10:25)
--- NOTE | 2019-12-28 17:30 | PM.IMPN ---
Progress Note: A&P Assessment and Plan (1) COVID-19: Code(s): U07.1 - COVID-19 Status: Acute Assessment and Plan: Symptoms began around 12/17/19, COVID positive 12/20 per patient. Imaging shows bilateral pneumonia, CTA shows no evidence of PE. Doing better on high flow theraphy Continue Remdesivir (day 5) and dexamethasone (day 6). Received convalescent plasma 12/25. Continue to monitor with continuous pulse ox. DVT prophylaxis with Lovenox. GI prophylaxis with Protonix. Continue supportive therapy with Mucinex, Tessalon Perles, zinc and vitamin-C and D supplementation. (2) Pneumonia: Code(s): J18.9 - Pneumonia, unspecified organism Status: Acute Assessment and Plan: Secondary to COVID-19. (3) Acute respiratory failure with hypoxia: Code(s): J96.01 - Acute respiratory failure with hypoxia Status: Acute Assessment and Plan: Secondary to COVID-19 pneumonia. (4) Hypertension: Code(s): I10 - Essential (primary) hypertension Status: Inactive Assessment and Plan: Blood pressure stable, last 126/63. Continue his home regimen with enalapril, metoprolol, and HCTZ. Subjective Date/time seen: 12/28/19 17:30 Interval history: Mr. West is a 49yo M admitted for acute respiratory failure secondary to COVID-19 pneumonia. He has been on continuous BiPAP overnight and this morning. Pt feels better, presently on 60% high flow and completing sentences. Review of Systems Review of Systems: All systems reviewed & are unremarkable except as noted in HPI and below Exam Const: General: well developed, alert, awake, Physically active and other (Acutely ill looking.) Nutritional Appearance: overweight Orientation/consciousness: patient oriented x3 Limitations: no limitations Resp: Effort & Inspection: able to speak in complete sentences and Actively coughing Cardio: Jugular venous distension: no JVD Rate: regular rate Rhythm: regular rhythm Heart sounds: S1 normal heart sound present and S2 normal heart sound present GI: Inspection: normal to inspection Auscultation: normal bowel sounds Skin: General skin exam: no rashes or lesions noted Neuro: General: patient oriented x3 and CN's II-XI intact bilaterally Cranial nerves: Yes CN's II-XII intact bilaterally and Yes Equal, round and reactive pupils present Extrem: General: full ROM, no joint enlargement and no pedal edema Objective Data Vital Signs Vital Signs: Vital Signs - 24 hr 12/27/19 18:00 12/27/19 20:00 12/27/19 20:35 Temperature 36.2 C L Pulse Rate 81 70 68 Respiratory Rate 28 H 28 H Blood Pressure 117/61 Pulse Oximetry 97 12/27/19 20:45 12/27/19 20:58 12/27/19 22:00 Temperature Pulse Rate 61 61 70 Respiratory Rate 44 H 42 H Blood Pressure Pulse Oximetry 95 12/27/19 22:45 12/27/19 23:12 12/27/19 23:56 Temperature 36.5 C Pulse Rate 67 79 Respiratory Rate 50 H 36 H Blood Pressure 134/83 Pulse Oximetry 90 97 96 12/28/19 00:00 12/28/19 02:00 12/28/19 02:30 Temperature Pulse Rate 66 62 63 Respiratory Rate 38 H Blood Pressure Pulse Oximetry 12/28/19 03:01 12/28/19 04:00 12/28/19 06:00 Temperature 36.2 C L Pulse Rate 63 61 61 Respiratory Rate 38 H 34 H Blood Pressure 119/78 Pulse Oximetry 93 100 12/28/19 08:00 12/28/19 08:51 12/28/19 09:01 Temperature 36.6 C Pulse Rate 70 72 69 Respiratory Rate 16 22 H 22 H Blood Pressure 121/74 Pulse Oximetry 90 94 12/28/19 10:00 12/28/19 10:23 12/28/19 12:00 Temperature 36.3 C L Pulse Rate 81 67 70 Respiratory Rate 24 H Blood Pressure 116/67 Pulse Oximetry 90 12/28/19 14:00 12/28/19 14:48 12/28/19 15:08 Temperature Pulse Rate 78 72 70 Respiratory Rate 20 20 Blood Pressu
--- NOTE | 2019-12-28 22:03 | PCRCNOTE ---
PT SPO2 NOTED TO BE IN THE 70'S ON HFNC THERAPY 50LPM @ 94% FIO2. PLACED PT ON BIPAP WITH ORDERED SETTINGS OF 15/7 100% FOR SPO2 97%. PT TOLERATING FAIRLY WELL.
[2019-12-29] VITALS (23 sets, daily range): BP systolic 110–135; BP diastolic 58–87; PULSE 56–78; RESP 20–38; TEMP 36.4–36.8; O2SAT 83–98
[2019-12-29 01:55] LABS: Alveolar/Arterial O2 Gradient 602.1 mmHg; Base Excess ABG 1.3 mEq/l (+/-2.0); Carboxyhemoglobin 0.3 % THb (0-2.0); Fractional Inspired Oxygen 100 %; HCO3 ABG 25.9 mEq/l (22.0-26.0); Methemoglobin ABG 0.4 %THb (0-1.5); Oxygen Saturation ABG 94.3 % (95.0-100.0); Oxyhemoglobin 92.8 % THb (90.0-100.0); PO2 ABG 69.9 mmHg (80.0-100.0); Reduced Hemoglobin 6.5 %THb (0-5.0); Total Hemoglobin 16.1 g/dL (12.0-18.0); pH ABG 7.418 (7.350-7.450)
[2019-12-29 01:56] LABS: Device NON-INVASIVE VENT; Non-Invasive Expiratory Pressure 7 CMH2O; Non-Invasive Inspiratory Pressure 15 CMH2O; Non-Invasive Vent Rate 4 /MIN; Site Drawn RIGHT BRACHIAL
[2019-12-29] MEDS: ALBUTEROL SULFATE NEB 2.5 MG/0.5 ML INH 5 MG INHALATION ×3 (01:59→20:59)
[2019-12-29] MEDS: METOPROLOL SUCCINATE EXT REL 100 MG TABCR PO (08:43)
[2019-12-29] MEDS: ENOXAPARIN 40 MG/0.4 ML SYRINGE SUB-Q ×2 (08:43→20:50)
[2019-12-29] MEDS: CHOLECALCIFEROL 1,000 UNITS TABLET 1000 UNITS PO (08:43)
[2019-12-29] MEDS: ASPIRIN 81 MG ENTERIC TABLET PO (08:43)
[2019-12-29] MEDS: THERAPEUTIC MULTIVITAMINS/MINERALS TAB (*BKC) 1 TABLET PO (08:43)
[2019-12-29] MEDS: BENZONATATE 100 MG CAPSULE PO ×3 (08:43→17:10)
[2019-12-29] MEDS: ASCORBIC ACID 500 MG TABLET PO (08:43)
[2019-12-29] MEDS: ENALAPRIL MALEATE 10 MG TABLET PO (08:43)
[2019-12-29] MEDS: PANTOPRAZOLE 40 MG TABLET PO (08:43)
[2019-12-29] MEDS: guaiFENesin 600 MG/DEXTROMETHORPHAN 30 MG SR TAB 12 HR 1 TAB PO ×2 (08:43→20:50)
[2019-12-29] MEDS: ZINC SULFATE 220 MG CAPSULE PO (08:43)
[2019-12-29] MEDS: hydroCHLOROthiazide 25 MG TABLET PO (08:43)
[2019-12-29] MEDS: DEXAMETHASONE 2 MG TABLET 6 MG PO (09:24)
--- NOTE | 2019-12-29 15:01 | PM.IMPN ---
Progress Note: A&P Assessment and Plan (1) COVID-19: Code(s): U07.1 - COVID-19 Status: Acute Assessment and Plan: Symptoms began around 12/17/19, COVID positive 12/20 per patient. Imaging shows bilateral pneumonia, CTA shows no evidence of PE. Doing better on high flow theraphy Continue Remdesivir (completed) and dexamethasone (day 7). Received convalescent plasma 12/25. Continue to monitor with continuous pulse ox. DVT prophylaxis with Lovenox. GI prophylaxis with Protonix. Continue supportive therapy with Mucinex, Tessalon Perles, zinc and vitamin-C and D supplementation. (2) Pneumonia: Code(s): J18.9 - Pneumonia, unspecified organism Status: Acute Assessment and Plan: Secondary to COVID-19. (3) Acute respiratory failure with hypoxia: Code(s): J96.01 - Acute respiratory failure with hypoxia Status: Acute Assessment and Plan: Secondary to COVID-19 pneumonia. (4) Hypertension: Code(s): I10 - Essential (primary) hypertension Status: Inactive Assessment and Plan: Blood pressure stable, last 126/63. Continue his home regimen with enalapril, metoprolol, and HCTZ. Subjective Date/time seen: 12/29/19 15:01 Interval history: Mr. West is a 49yo M admitted for acute respiratory failure secondary to COVID-19 pneumonia. He has been on continuous BiPAP overnight and this morning. Pt feels better, presently on 60% high flow and completing sentences. CT chest positive for covid changes 12/23/2019, treated with remdesvir, steroids and plasma Review of Systems Review of Systems: All systems reviewed & are unremarkable except as noted in HPI and below Exam Const: General: well developed, alert, awake, Physically active and other (Acutely ill looking.) Nutritional Appearance: overweight Orientation/consciousness: patient oriented x3 Limitations: no limitations Resp: Effort & Inspection: Actively coughing Neuro: General: patient oriented x3 and CN's II-XI intact bilaterally Cranial nerves: Yes CN's II-XII intact bilaterally and Yes Equal, round and reactive pupils present Extrem: General: full ROM, no joint enlargement and no pedal edema Objective Data Vital Signs Vital Signs: Vital Signs - 24 hr 12/28/19 15:08 12/28/19 16:00 12/28/19 18:00 Temperature 36.8 C Pulse Rate 70 74 68 Respiratory Rate 20 28 H Blood Pressure 126/63 Pulse Oximetry 95 12/28/19 19:47 12/28/19 20:00 12/28/19 21:09 Temperature 37.2 C Pulse Rate 63 68 63 Respiratory Rate 30 H 32 H 24 H Blood Pressure 113/64 Pulse Oximetry 94 93 93 12/28/19 22:00 12/28/19 22:03 12/28/19 23:34 Temperature Pulse Rate 71 69 Respiratory Rate 24 H Blood Pressure Pulse Oximetry 97 82 L 12/28/19 23:52 12/29/19 00:00 12/29/19 01:59 Temperature 37.1 C Pulse Rate 59 L 58 L 71 Respiratory Rate 30 H 32 H Blood Pressure 120/66 Pulse Oximetry 92 83 L 93 12/29/19 02:00 12/29/19 02:08 12/29/19 03:59 Temperature 36.8 C Pulse Rate 69 69 66 Respiratory Rate 32 H 38 H Blood Pressure 134/75 Pulse Oximetry 92 12/29/19 04:00 12/29/19 06:00 12/29/19 08:00 Temperature 36.6 C Pulse Rate 65 66 70 Respiratory Rate 24 H Blood Pressure 122/65 Pulse Oximetry 87 L 93 12/29/19 08:30 12/29/19 08:40 12/29/19 10:00 Temperature Pulse Rate 61 65 68 Respiratory Rate 24 H 24 H Blood Pressure Pulse Oximetry 93 93 12/29/19 11:43 12/29/19 12:00 12/29/19 13:10 Temperature 36.8 C Pulse Rate 63 70 64 Respiratory Rate 26 H 24 H Blood Pressure 110/58 L Pulse Oximetry 96 96 12/29/19 13:20 12/29/19 14:00 Temperature Pulse Rate 65 73 Respiratory Rate 24 H Blood Pressure Pulse Oximetry Intake/Output Intake/Output: Intake & Output
[2019-12-29] MEDS: DEXAMETHASONE SOD PHOS INJ 4 MG/ML VIAL IV PUSH ×2 (18:19→23:00)
[2019-12-30] VITALS (20 sets, daily range): BP systolic 107–122; BP diastolic 55–69; PULSE 55–82; RESP 18–25; TEMP 36–36.4; O2SAT 90–98
[2019-12-30] MEDS: ALBUTEROL SULFATE NEB 2.5 MG/0.5 ML INH 5 MG INHALATION ×4 (02:00→19:47)
[2019-12-30] MEDS: DEXAMETHASONE SOD PHOS INJ 4 MG/ML VIAL IV PUSH ×2 (05:56→12:57)
[2019-12-30 06:07] LABS: Hematocrit 44.9 % (42.0-52.0); Hemoglobin 15.6 g/dL (14.0-18.0); Mean Corpuscular HGB Conc 34.7 g/dl (32-36); Mean Corpuscular Hemoglobin 30.4 pg (26-34); Mean Corpuscular Volume 87.5 fl (80-100); Mean Platelet Volume 9.2 fl (7.4-10.4); Platelet Count Result 330 k/mm3 (150-375); Red Blood Count 5.13 M/mm3 (4.6-6.20); Red Cell Distribution Width 12.4 % (11.5-14.5); White Blood Count 17.8 K/mm3 (4.5-10.0)
[2019-12-30 06:24] LABS: Anion Gap 7 mmol/L (8-16); Blood Urea Nitrogen 21 mg/dL (9-20); Calcium 9.2 mg/dL (8.4-10.2); Carbon Dioxide 32 mmol/L (22-30); Chloride 99 mmol/L (98-107); Estimated CRCL calculation 148 ml/min; Estimated Glomerular Filt Rate > 60; Glucose 145 mg/dL (75-110); Potassium 4.9 mmol/L (3.4-5.0); Sodium 138 mmol/L (137-145)
[2019-12-30 08:26] LABS: PCO2 ABG 36.3 mmHg (35.0-45.0); pH ABG 7.453 (7.350-7.450)
[2019-12-30 08:27] LABS: Alveolar/Arterial O2 Gradient 618.9 mmHg; Base Excess ABG 1.3 mEq/l (+/-2.0); HCO3 ABG 24.8 mEq/l (22.0-26.0); Oxygen Content ABG 20.3 %vol (16.0-22.0); Oxygen Saturation ABG 91.5 % (95.0-100.0); Oxyhemoglobin 89.5 % THb (90.0-100.0); PO2 ABG 57.8 mmHg (80.0-100.0); Total Hemoglobin 16.2 g/dL (12.0-18.0)
[2019-12-30 08:28] LABS: Device HIGH FLOW THERAPY; Fractional Inspired Oxygen 100 %; Modified Allen's Test Pass; Site Drawn RIGHT RADIAL
[2019-12-30] MEDS: ENOXAPARIN 40 MG/0.4 ML SYRINGE SUB-Q ×2 (08:54→21:32)
[2019-12-30] MEDS: ASCORBIC ACID 500 MG TABLET PO (08:54)
[2019-12-30] MEDS: THERAPEUTIC MULTIVITAMINS/MINERALS TAB (*BKC) 1 TABLET PO (08:54)
[2019-12-30] MEDS: PANTOPRAZOLE 40 MG TABLET PO (08:54)
[2019-12-30] MEDS: BENZONATATE 100 MG CAPSULE PO ×3 (08:54→18:16)
[2019-12-30] MEDS: hydroCHLOROthiazide 25 MG TABLET PO (08:54)
[2019-12-30] MEDS: METOPROLOL SUCCINATE EXT REL 100 MG TABCR PO (08:55)
[2019-12-30] MEDS: ZINC SULFATE 220 MG CAPSULE PO (08:55)
[2019-12-30] MEDS: ASPIRIN 81 MG ENTERIC TABLET PO (08:56)
[2019-12-30] MEDS: ENALAPRIL MALEATE 10 MG TABLET PO (08:56)
[2019-12-30] MEDS: CHOLECALCIFEROL 1,000 UNITS TABLET 1000 UNITS PO (08:56)
[2019-12-30] MEDS: guaiFENesin 600 MG/DEXTROMETHORPHAN 30 MG SR TAB 12 HR 1 TAB PO ×2 (08:56→21:32)
--- NOTE | 2019-12-30 14:03 | PM.IMPN ---
Progress Note: A&P Assessment and Plan (1) COVID-19: Code(s): U07.1 - COVID-19 Status: Acute Assessment and Plan: Symptoms began around 12/17/19, COVID positive 12/20 per patient. Imaging shows bilateral pneumonia, CTA shows no evidence of PE. Pt still on high flow oxygen Continue Remdesivir (completed) and dexamethasone (day 8). Received convalescent plasma 12/25. Continue to monitor with continuous pulse ox. DVT prophylaxis with Lovenox. GI prophylaxis with Protonix. Continue supportive therapy with Mucinex, Tessalon Perles, zinc and vitamin-C and D supplementation. Added Iv rocephin and zithromax, pt also on iv steroids - As Cxr shows PNEUMONIA May consult ID or pulmonology for ongoing deoxygenation (2) Pneumonia: Code(s): J18.9 - Pneumonia, unspecified organism Status: Acute Assessment and Plan: Secondary to COVID-19. (3) Acute respiratory failure with hypoxia: Code(s): J96.01 - Acute respiratory failure with hypoxia Status: Acute Assessment and Plan: Secondary to COVID-19 pneumonia. (4) Hypertension: Code(s): I10 - Essential (primary) hypertension Status: Inactive Assessment and Plan: Blood pressure stable, last 107/57. Continue his home regimen with enalapril, metoprolol, and HCTZ. Subjective Date/time seen: 12/30/19 14:03 Interval history: Mr. West is a 49yo M admitted for acute respiratory failure secondary to COVID-19 pneumonia. He has been on continuous BiPAP overnight and this morning. Pt feels better, presently on 50% high flow and completing sentences. CT chest positive for covid changes 12/23/2019, treated with remdesvir, steroids and plasma, Cxr still shows pneumonia I will cover for bacterial pneumonia, ordered BC and IV abx Review of Systems Review of Systems: All systems reviewed & are unremarkable except as noted in HPI and below Exam Const: General: well developed, alert, awake, Physically active and other (Acutely ill looking.) Nutritional Appearance: overweight Orientation/consciousness: patient oriented x3 Limitations: no limitations Resp: Effort & Inspection: able to speak in complete sentences and Actively coughing Auscultation: diminished lung sounds Cardio: Jugular venous distension: no JVD Rate: regular rate Rhythm: regular rhythm Heart sounds: S1 normal heart sound present and S2 normal heart sound present GI: Inspection: normal to inspection Auscultation: normal bowel sounds Skin: General skin exam: no rashes or lesions noted Neuro: General: patient oriented x3 and CN's II-XI intact bilaterally Cranial nerves: Yes CN's II-XII intact bilaterally and Yes Equal, round and reactive pupils present Extrem: General: full ROM, no joint enlargement and no pedal edema Objective Data Vital Signs Vital Signs: Vital Signs - 24 hr 12/29/19 16:00 12/29/19 18:00 12/29/19 20:00 Temperature 36.6 C 36.4 C L Pulse Rate 68 58 L 69 Respiratory Rate 30 H 26 H Blood Pressure 115/61 126/71 Pulse Oximetry 90 98 12/29/19 21:19 12/29/19 21:30 12/29/19 22:00 Temperature Pulse Rate 78 68 Respiratory Rate 28 H Blood Pressure Pulse Oximetry 97 98 12/29/19 23:12 12/30/19 00:00 12/30/19 02:00 Temperature 36.5 C Pulse Rate 65 56 L 60 Respiratory Rate 28 H 25 H Blood Pressure 135/87 Pulse Oximetry 96 94 96 12/30/19 04:00 12/30/19 06:00 12/30/19 08:00 Temperature 36.0 C L 36.4 C Pulse Rate 69 74 63 Respiratory Rate 18 24 H Blood Pressure 121/69 122/66 Pulse Oximetry 96 92 12/30/19 08:09 12/30/19 08:10 12/30/19 08:55 Temperature Pulse Rate 63 62 Respiratory Rate 22 H Blood Pressure Pulse Oximetry 91 12/30/19 10:00 12/30/19 14:00 12/30/19 14:01 Temperature Pulse Rate 70
--- NOTE | 2019-12-30 14:47 | PCDIET ---
Weekly nutritional screen. Patient is tolerating current diet with adequate intake. No weight loss reported. No nutritional needs at this time.
[2019-12-31] VITALS (24 sets, daily range): BP systolic 91–131; BP diastolic 57–73; PULSE 48–602; RESP 15–268; TEMP 36–36.3; O2SAT 91–100
[2019-12-31] MEDS: ALBUTEROL SULFATE NEB 2.5 MG/0.5 ML INH 5 MG INHALATION ×4 (02:22→20:59)
[2019-12-31] MEDS: ASPIRIN 81 MG ENTERIC TABLET PO (11:22)
[2019-12-31] MEDS: CHOLECALCIFEROL 1,000 UNITS TABLET 1000 UNITS PO (11:23)
[2019-12-31] MEDS: BENZONATATE 100 MG CAPSULE PO ×3 (11:23→19:15)
[2019-12-31] MEDS: ASCORBIC ACID 500 MG TABLET PO (11:24)
[2019-12-31] MEDS: METOPROLOL SUCCINATE EXT REL 100 MG TABCR PO (11:24)
[2019-12-31] MEDS: guaiFENesin 600 MG/DEXTROMETHORPHAN 30 MG SR TAB 12 HR 1 TAB PO ×2 (11:25→20:01)
[2019-12-31] MEDS: THERAPEUTIC MULTIVITAMINS/MINERALS TAB (*BKC) 1 TABLET PO (11:25)
[2019-12-31] MEDS: PANTOPRAZOLE 40 MG TABLET PO (11:25)
[2019-12-31] MEDS: ZINC SULFATE 220 MG CAPSULE PO (11:25)
[2019-12-31] MEDS: ENOXAPARIN 40 MG/0.4 ML SYRINGE SUB-Q ×2 (11:26→20:01)
[2019-12-31] MEDS: DEXAMETHASONE 2 MG TABLET 6 MG PO (12:55)
--- NOTE | 2019-12-31 17:10 | PM.IMPN ---
Progress Note: A&P Assessment and Plan (1) COVID-19: Code(s): U07.1 - COVID-19 Status: Acute Assessment and Plan: Symptoms began around 12/17/19, COVID positive 12/20 per patient. Imaging shows bilateral pneumonia, CTA shows no evidence of PE. Pt still on high flow oxygen, been here roughly two weeks Continue Remdesivir (completed) and dexamethasone (day 9). Received convalescent plasma 12/25. Continue to monitor with continuous pulse ox. DVT prophylaxis with Lovenox. GI prophylaxis with Protonix. Continue supportive therapy with Mucinex, Tessalon Perles, zinc and vitamin-C and D supplementation. Added Iv rocephin and zithromax, pt also on iv steroids - As Cxr shows PNEUMONIA May consult ID for ongoing deoxygenation and oxygen need (2) Pneumonia: Code(s): J18.9 - Pneumonia, unspecified organism Status: Acute Assessment and Plan: Secondary to COVID-19. (3) Acute respiratory failure with hypoxia: Code(s): J96.01 - Acute respiratory failure with hypoxia Status: Acute Assessment and Plan: Secondary to COVID-19 pneumonia. (4) Hypertension: Code(s): I10 - Essential (primary) hypertension Status: Inactive Assessment and Plan: Blood pressure stable, last 107/57. Continue his home regimen with enalapril, metoprolol, and HCTZ. Subjective Date/time seen: 12/31/19 17:10 Interval history: Mr. West is a 49yo M admitted for acute respiratory failure secondary to COVID-19 pneumonia. Pt is presently on high flow at 60%CT chest positive for covid changes 12/23/2019, treated with remdesvir, steroids and plasma, Cxr still shows pneumonia I will cover for bacterial pneumonia, ordered BC and IV abx. Pt still needing oxygen, I have consulted ID for further recommendation. 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 Review of Systems Review of Systems: All systems reviewed & are unremarkable except as noted in HPI and below Exam Const: General: well developed, alert, awake, Physically active and other (Acutely ill looking.) Nutritional Appearance: overweight Orientation/consciousness: patient oriented x3 HENMT: Head: normal to inspection and normocephalic Ears: hearing grossly normal bilaterally General nose exam: Normal external nose present Face and sinus: normal facial exam Eyes: General: appearance normal, both eyes and all related structures Pupils: Equal, round and reactive pupils present EOM: EOMs intact bilaterally Neck: Neck: full ROM, no lymphadenopathy and no JVD Resp: Effort & Inspection: able to speak in complete sentences and respiratory distress (with high flow oxygen on ) GI: Inspection: normal to inspection Auscultation: normal bowel sounds Skin: General skin exam: no rashes or lesions noted Neuro: General: patient oriented x3 and CN's II-XI intact bilaterally Cranial nerves: Yes CN's II-XII intact bilaterally and Yes Equal, round and reactive pupils present Extrem: General: full ROM, no joint enlargement and no pedal edema Objective Data Vital Signs Vital Signs: Vital Signs - 24 hr 12/30/19 18:00 12/30/19 18:18 12/30/19 19:47 Temperature 36.2 C L Pulse Rate 75 75 67 Respiratory Rate 20 20 Blood Pressure 116/60 Pulse Oximetry 90 95 12/30/19 20:00 12/30/19 20:20 12/30/19 22:00 Temperature 36.3 C L Pulse Rate 80 65 Respiratory Rate 25 H 25 H Blood Pressure 111/55 L Pulse Oximetry 92 92 12/31/19 00:00 12/31/19 02:00 12/31/19 02:22 Temperature 36.1 C L Pulse Rate 60 48 L 602 H Respiratory Rate 15 Blood Pressure 131/73 Pulse Oximetry 100 12/31/19 02:24 12/31/19 04:00 12/31/19 06:00 Temperature 36.1 C L Pulse Rate 60 61 49 L Respiratory Rate 268 H 16 Blood Pressure 118/69 Pulse Oximetry 98 96 12/31/19
[2020-01-01] VITALS (23 sets, daily range): BP systolic 105–133; BP diastolic 61–82; PULSE 59–90; RESP 15–24; TEMP 36.1–36.6; O2SAT 92–100
[2020-01-01] MEDS: ALBUTEROL SULFATE NEB 2.5 MG/0.5 ML INH 5 MG INHALATION ×4 (01:50→23:20)
--- NOTE | 2020-01-01 09:27 | WPDINFPN2 ---
Progress Note: A&P Assessment and Plan (1) COVID-19: Code(s): U07.1 - COVID-19 Status: Acute Assessment and Plan: Hypoxemia due to CoVid 19 viral pneumonia, no bacterial superinfection REC No further steroids, no proven benefit and potentially harmful. Wean O2 as tolerated. Call if other Qs Subjective Date/time seen: 01/01/20 09:27 Objective Data Vital Signs Vital Signs: Vital Signs - 24 hr 12/31/19 09:57 12/31/19 10:00 12/31/19 10:03 Temperature Pulse Rate 72 86 70 Respiratory Rate Blood Pressure Pulse Oximetry 95 12/31/19 11:24 12/31/19 12:00 12/31/19 12:15 Temperature 36.0 C L Pulse Rate 76 73 78 Respiratory Rate 20 24 H Blood Pressure 114/63 Pulse Oximetry 96 93 12/31/19 14:00 12/31/19 15:07 12/31/19 15:13 Temperature Pulse Rate 82 71 70 Respiratory Rate Blood Pressure Pulse Oximetry 95 12/31/19 16:00 12/31/19 18:00 12/31/19 20:00 Temperature 36.3 C L 36.1 C L Pulse Rate 85 77 72 Respiratory Rate 20 20 Blood Pressure 106/60 112/57 L Pulse Oximetry 94 93 12/31/19 21:02 12/31/19 21:03 12/31/19 21:15 Temperature Pulse Rate 76 72 72 Respiratory Rate 20 20 Blood Pressure Pulse Oximetry 93 12/31/19 22:00 12/31/19 22:15 01/01/20 00:00 Temperature 36.1 C L Pulse Rate 65 72 59 L Respiratory Rate 20 15 Blood Pressure 133/76 Pulse Oximetry 98 98 01/01/20 01:53 01/01/20 02:00 01/01/20 02:10 Temperature Pulse Rate 77 63 90 Respiratory Rate 20 20 Blood Pressure Pulse Oximetry 01/01/20 04:00 01/01/20 06:00 01/01/20 06:20 Temperature 36.2 C L Pulse Rate 59 L 61 65 Respiratory Rate 16 20 Blood Pressure 122/81 Pulse Oximetry 100 95 01/01/20 08:00 Temperature 36.1 C L Pulse Rate 61 Respiratory Rate 16 Blood Pressure 123/68 Pulse Oximetry 97 Intake/Output Intake/Output: Intake & Output 12/29/19 12/30/19 12/31/19 01/01/20 23:59 23:59 23:59 23:59 Intake Total 1550 2970 1370 600 Output Total 8516 6813 2100 1600 Balance -1320 815 -542 -6708 Meds/Results Medications: Active Medications Generic Name Dose Route Start Last Admin Trade Name Freq PRN Reason Stop Dose Admin Acetaminophen 650 mg 12/27/19 09:30 Acetaminophen 325 Mg Tablet PO Q4H PRN Pain Rated 5 or Less Hydrocodone Bitart/Acetaminophen 1 tab 12/27/19 09:25 Hydrocodone/Acetaminophen (*Crx) 7.5-325 Mg Tablet PO Q6H PRN Pain Rated 6 or Greater Albuterol 2 puff 12/26/19 18:00 Albuterol Sulfate (*Sp) Aerosol 1 Puff INHALATION Q6HRT PRN Shortness Of Breath Or Wheezing Albuterol 5 mg 12/26/19 20:00 01/01/20 01:50 Albuterol Sulfate Neb 2.5 Mg/0.5 Ml Inh INHALATION 5 mg Q6HRT ROSA MARIA Administration Ascorbic Acid 500 mg 12/27/19 09:00 12/31/19 11:24 Ascorbic Acid 500 Mg Tablet PO 500 mg DAILY ROSA MARIA Administration Aspirin 81 mg 12/24/19 09:00 12/31/19 11:22 Aspirin 81 Mg Enteric Tablet PO 01/23/20 09:01 81 mg DAILY ROSA MARIA Administration Benzonatate 100 mg 12/26/19 09:00 12/31/19 19:15 Benzonatate 100 Mg Capsule PO 100 mg TID ROSA MARIA Administration Dexamethasone 6 mg 12/31/19 08:00 12/31/19 12:55 Dexamethasone 2 Mg Tablet PO 01/09/20 08:01 6 mg DAILY@0800 ROSA MARIA Administration Enalapril Maleate 10 mg 12/25/19 09:00 12/31/19 11:26 Enalapril Maleate 10 Mg Tablet PO Not Given QAM [facility] Enoxaparin Sodium 40 mg 12/24/19 21:00 12/31/19 20:01 Enoxaparin 40 Mg/0.4 Ml Syringe SUB-Q 40 mg Q12HR ROSA MARIA Administration Guaifenesin/Dextromethorphan 1 tab 12/24/19 09:00 12/31/19 20:01 Guaifenesin 600 Mg/Dextromethorphan 30 Mg Sr Tab 12 Hr PO 1 tab Q12HR ROSA MARIA Administration Hydrochlorothiazide 25 mg 12/25/19 09:00 12/31/19 11:25 Hydrochlorothiazide 25 Mg Tablet PO Not Given QAM ROSA MAIRA Ceftriaxone Sodium/Dextrose 1 gm in 50 mls @ 100 mls/hr 12/30/19 14:00 12/31/19 15:11 Rocephin 1 Gm/D5w 50 Ml IVPB Infus
[2020-01-01] MEDS: guaiFENesin 600 MG/DEXTROMETHORPHAN 30 MG SR TAB 12 HR 1 TAB PO ×2 (09:30→21:00)
[2020-01-01] MEDS: ASCORBIC ACID 500 MG TABLET PO (09:30)
[2020-01-01] MEDS: ASPIRIN 81 MG ENTERIC TABLET PO (09:30)
[2020-01-01] MEDS: ENOXAPARIN 40 MG/0.4 ML SYRINGE SUB-Q ×2 (09:31→21:00)
[2020-01-01] MEDS: HYDROcodone/acetaminophen (*CRX) 7.5-325 MG TABLET 1 TAB PO ×2 (09:31→15:52)
[2020-01-01] MEDS: CHOLECALCIFEROL 1,000 UNITS TABLET 1000 UNITS PO (09:31)
[2020-01-01] MEDS: BENZONATATE 100 MG CAPSULE PO ×3 (09:32→17:31)
[2020-01-01] MEDS: THERAPEUTIC MULTIVITAMINS/MINERALS TAB (*BKC) 1 TABLET PO (09:33)
[2020-01-01] MEDS: ENALAPRIL MALEATE 10 MG TABLET PO (09:33)
[2020-01-01] MEDS: hydroCHLOROthiazide 25 MG TABLET PO (09:33)
[2020-01-01] MEDS: ZINC SULFATE 220 MG CAPSULE PO (09:33)
[2020-01-01] MEDS: METOPROLOL SUCCINATE EXT REL 100 MG TABCR PO (09:34)
[2020-01-01] MEDS: PANTOPRAZOLE 40 MG TABLET PO (09:34)
[2020-01-02] VITALS (23 sets, daily range): BP systolic 112–133; BP diastolic 56–76; PULSE 72–102; RESP 15–24; TEMP 35.7–38.2; O2SAT 90–100
[2020-01-02] MEDS: ALBUTEROL SULFATE NEB 2.5 MG/0.5 ML INH 5 MG INHALATION ×5 (02:02→22:32)
--- NOTE | 2020-01-02 06:12 | CONS_ITS ---
DATE OF CONSULTATION: 01/01/2020 REASON FOR CONSULTATION: Hypoxemia. HISTORY OF PRESENT ILLNESS: A 49-year-old male who had two negative coronavirus tests in late October and early November about 3 weeks apart done for sinus congestion. Due to shortness of breath, he had a repeat test done on November 19. This is a rapid test done at a [facility] that was positive. He was notified by phone and there is no written confirmation of this test on his medical chart. I did ask that he ask his to bring in the written results for the benefit of his medical record. He was admitted to the hospital on the and has been given 10 days of dexamethasone ending yesterday, remdesivir five-day course and a single transfusion of convalescent plasma. He still has oxygen need and was restarted on his dexamethasone yesterday. Ceftriaxone and azithromycin were given and consultation requested. The patient feels like he is slowly improving in terms of stamina, dyspnea on exertion and fatigue. His appetite is also recovering. He still is on high-flow O2. He had a brief episode of coughing last evening; otherwise, no ongoing cough. No chest pain. No subjective fever in the last week. No chills, sweats. Purulent sputum. He has no chronic lung disease and has never been on oxygen. He thinks he was exposed at work in early December when he was working over 120 hours in a 10 day. 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 ALLERGIES: NONE KNOWN. PRESENT MEDICATIONS: As above. No other immunosuppressants. HABITS: Ex-smoker. No alcohol to excess. PAST MEDICAL HISTORY: No chronic lung nor other illnesses. No previous surgeries. FAMILY HISTORY: Not pertinent to his present illness. SOCIAL HISTORY: He works and lives locally. REVIEW OF SYSTEMS: Constitutional, respiratory, GI, skin, musculoskeletal, and ENT otherwise negative. PHYSICAL EXAMINATION: GENERAL: Middle-aged male appears actual age. No distress. VITAL SIGNS: Consistently afebrile, 123/68, 61, 16, 97% saturation. He has had saturations in the mid 90s on high-flow O2 down to 91% on a single occasion. SKIN: Warm and dry. No rashes. No ulcers. NODES: He has no cervical adenopathy. EENT: No paranasal sinus erythema, edema or tenderness. Pupils equal, round, and reactive to light. Oropharynx, oral mucosa normal. NECK: No meningismus. LUNGS: Clear to auscultation and percussion. Good air entry. CHEST: Normal AP diameter. Equal expansion. CARDIAC: Regular rate and rhythm. No murmur, gallop, or rub. Peripheral pulses 2+. ABDOMEN: Obese, nontender. No masses. No organomegaly. EXTREMITIES: No clubbing, cyanosis, or edema. No venous varicosities, calf tenderness. LABORATORY DATA: Blood cultures not done until 2 days ago and these are no growth after short incubation. His white blood cell count 5.6 on admission, it has been high since then 17.8 today, hemoglobin 15.6, platelets are 330. No differential done, but earlier showed a minimal left shift. Blood gases 7.45, 36, 58 on high-flow O2 as specified. Chemistry panel normal except for glucose of 145 and a CO2 of 32. Ferritin is over 2000 on most recent determination. Transaminases are 5 times normal. CRP 4.0. RADIOLOGY: I personally reviewed his chest x-ray, which shows improving infiltrates, both throughout the left lung field, also in the right mid lung. I reviewed the radiologist's interpretation. I also reviewed the radiologist's interpretation of his CTA performed the day after admission, showing no pulmonary emboli, moderate amount bilateral ground-glass opacities. ASSESSMENT: 1. Persistent hypoxemia due to coronavirus viral pneumonia. I did not have a bacterial superinfection
[2020-01-02 06:48] LABS: Basophils Absolute Auto 0.1 K/mm3 (0.0-0.1); Basophils Percent Auto 0.6 % (0.2-1.2); Eosinophils Absolute Auto 0.4 K/mm3 (0-0.3); Eosinophils Percent Auto 3.3 % (0-4.4); Hematocrit 44.8 % (42.0-52.0); Hemoglobin 15.3 g/dL (14.0-18.0); Immature Granulocyte Absolute 0.86 K/mm3 (0.00-0.031); Immature Granulocyte Percent A 6.7 % (0-0.5); Lymphocytes Absolute Auto 0.96 K/mm3 (0.9-3.2); Lymphocytes Percent Auto 7.5 % (18.3-44.2); Mean Corpuscular HGB Conc 34.2 g/dl (32-36); Mean Corpuscular Hemoglobin 30.1 pg (26-34); Mean Corpuscular Volume 88.2 fl (80-100); Mean Platelet Volume 9.2 fl (7.4-10.4); Monocytes Absolute Auto 0.4 K/mm3 (0.1-0.6); Monocytes Percent Auto 3.1 % (2.6-8.5); Neutrophils Absolute Auto 10.2 K/mm3 (1.3-6.7); Neutrophils Percent Auto 78.8 % (45.5-73.1); Platelet Count Result 243 k/mm3 (150-375); Red Blood Count 5.08 M/mm3 (4.6-6.20); Red Cell Distribution Width 12.7 % (11.5-14.5); White Blood Count 12.9 K/mm3 (4.5-10.0)
[2020-01-02 06:57] LABS: Alanine Aminotransferase 151 U/L (4-50); Albumin Level 3.1 g/dL (3.5-5.1); Alkaline Phosphatase 112 U/L (38-126); Anion Gap 6 mmol/L (8-16); Aspartate Amino Transferase 97 U/L (17-59); Bilirubin,Total 0.5 mg/dL (0.2-1.3); Blood Urea Nitrogen 20 mg/dL (9-20); Calcium 8.3 mg/dL (8.4-10.2); Carbon Dioxide 29 mmol/L (22-30); Chloride 95 mmol/L (98-107); Estimated CRCL calculation 120 ml/min; Estimated Glomerular Filt Rate > 60; Glucose 101 mg/dL (75-110); Potassium 4.3 mmol/L (3.4-5.0); Sodium 130 mmol/L (137-145)
--- NOTE | 2020-01-02 08:48 | PM.IMPN ---
Progress Note: A&P Assessment and Plan (1) COVID-19: Code(s): U07.1 - COVID-19 Status: Acute Assessment and Plan: Symptoms began around 12/17/19, COVID positive 12/20 per patient. Imaging shows bilateral pneumonia, CTA shows no evidence of PE. Pt still on high flow oxygen, been here roughly two weeks Continue Remdesivir (completed) and dexamethasone (day 9). Received convalescent plasma 12/25. Continue to monitor with continuous pulse ox. DVT prophylaxis with Lovenox. GI prophylaxis with Protonix. Continue supportive therapy with Mucinex, Tessalon Perles, zinc and vitamin-C and D supplementation. Added Iv rocephin and zithromax, pt also on iv steroids - As Cxr shows PNEUMONIA May consult ID for ongoing deoxygenation and oxygen need Mr. West is a 49yo M admitted for acute respiratory failure secondary to COVID-19 pneumonia. Pt is presently on high flow at 60%CT chest positive for covid changes 12/23/2019, treated with remdesvir, steroids and plasma, Cxr still shows pneumonia I will cover for bacterial pneumonia, ordered BC and IV abx. Pt still needing oxygen, I have consulted ID for further recommendation. 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 Plan is to wean patient off high flow oxygen. (2) Pneumonia: Code(s): J18.9 - Pneumonia, unspecified organism Status: Acute Assessment and Plan: Secondary to COVID-19. (3) Acute respiratory failure with hypoxia: Code(s): J96.01 - Acute respiratory failure with hypoxia Status: Acute Assessment and Plan: Secondary to COVID-19 pneumonia. (4) Hypertension: Code(s): I10 - Essential (primary) hypertension Status: Inactive Assessment and Plan: Blood pressure stable, last 107/57. Continue his home regimen with enalapril, metoprolol, and HCTZ. Subjective Date/time seen: 01/01/2020 Interval history: Mr. West is a 49yo M admitted for acute respiratory failure secondary to COVID-19 pneumonia. Pt is presently on high flow at 60%CT chest positive for covid changes 12/23/2019, treated with remdesvir, steroids and plasma, Cxr still shows pneumonia I will cover for bacterial pneumonia, ordered BC and IV abx. Pt still needing oxygen, I have consulted ID for further recommendation. 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 Plan is to wean patient off high flow oxygen. Review of Systems Review of Systems: All systems reviewed & are unremarkable except as noted in HPI and below Exam Narrative: Exam Narrative: Moderatly obese Patient is comfortable, NAD HEENT: eyes are clear and none icteric LUNGS:b/l fair air entry with ronchi HEART: RR S1S2 ABD: BS+, Soft and nontender Lower extremities: no edema SKIN: nonjaundiced Neuro: grossly intact. Objective Data Vital Signs Vital Signs: Vital Signs - 24 hr 01/01/20 09:34 01/01/20 09:48 01/01/20 10:00 Temperature Pulse Rate 68 89 81 Respiratory Rate 24 H Blood Pressure Pulse Oximetry 96 01/01/20 10:01 01/01/20 10:28 01/01/20 12:00 Temperature 97.7 F Pulse Rate 85 76 Respiratory Rate 24 H 20 Blood Pressure 115/61 Pulse Oximetry 92 94 01/01/20 14:00 01/01/20 15:16 01/01/20 15:30 Temperature Pulse Rate 73 79 84 Respiratory Rate 22 H 24 H Blood Pressure Pulse Oximetry 01/01/20 16:00 11/22/20 18:00 01/01/20 20:00 Temperature 97.8 F 97.7 F Pulse Rate 72 75 78 Respiratory Rate 20 18 Blood Pressure 105/82
[2020-01-02] MEDS: ASPIRIN 81 MG ENTERIC TABLET PO (10:12)
[2020-01-02] MEDS: ENOXAPARIN 40 MG/0.4 ML SYRINGE SUB-Q ×2 (10:12→21:00)
[2020-01-02] MEDS: CHOLECALCIFEROL 1,000 UNITS TABLET 1000 UNITS PO (10:12)
[2020-01-02] MEDS: BENZONATATE 100 MG CAPSULE PO ×3 (10:12→20:14)
[2020-01-02] MEDS: hydroCHLOROthiazide 25 MG TABLET PO (10:12)
[2020-01-02] MEDS: guaiFENesin 600 MG/DEXTROMETHORPHAN 30 MG SR TAB 12 HR 1 TAB PO ×2 (10:13→21:00)
[2020-01-02] MEDS: THERAPEUTIC MULTIVITAMINS/MINERALS TAB (*BKC) 1 TABLET PO (10:13)
[2020-01-02] MEDS: ASCORBIC ACID 500 MG TABLET PO (10:13)
[2020-01-02] MEDS: METOPROLOL SUCCINATE EXT REL 100 MG TABCR PO (10:14)
[2020-01-02] MEDS: ENALAPRIL MALEATE 10 MG TABLET PO (10:14)
[2020-01-02] MEDS: PANTOPRAZOLE 40 MG TABLET PO (10:15)
[2020-01-02] MEDS: ZINC SULFATE 220 MG CAPSULE PO (10:15)
[2020-01-02] MEDS: HYDROcodone/acetaminophen (*CRX) 7.5-325 MG TABLET 1 TAB PO (15:48)
[2020-01-02] MEDS: LIDOCAINE HCL 2% VISC SOLN 15 ML UDC PO (15:48)
--- NOTE | 2020-01-02 18:11 | PM.IMPN ---
Progress Note: A&P Assessment and Plan (1) COVID-19: Code(s): U07.1 - COVID-19 Status: Acute Assessment and Plan: Symptoms began around 12/17/19, COVID positive 12/20 per patient. Imaging shows bilateral pneumonia, CTA shows no evidence of PE. Pt still on high flow oxygen, been here roughly two weeks Continue Remdesivir (completed) and dexamethasone (day 9). Received convalescent plasma 12/25. Continue to monitor with continuous pulse ox. DVT prophylaxis with Lovenox. GI prophylaxis with Protonix. Continue supportive therapy with Mucinex, Tessalon Perles, zinc and vitamin-C and D supplementation. Added Iv rocephin and zithromax, pt also on iv steroids - As Cxr shows PNEUMONIA May consult ID for ongoing deoxygenation and oxygen need 01/02/2020 Mr. West is a 49yo M admitted for acute respiratory failure secondary to COVID-19 pneumonia. Pt is presently on high flow at 60%CT chest positive for covid changes 12/23/2019, treated with remdesvir, steroids and plasma, Cxr still shows pneumonia I will cover for bacterial pneumonia, ordered BC and IV abx. Pt still needing oxygen, I have consulted ID for further recommendation. 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 Plan is to wean patient off high flow oxygen. Patient was seen by Dr. peterson does not suspect superinfection rather COVID-19 pneumonia slow recovery recommending to stop the dexamethasone, patient clinically symptoms are improving, will taper down patient oxygen will continue to monitor, will have a PT OT evaluate the patient and further recommendation to follow, today patient complains feels likely his toung is swallen most likely secondary to high-flow oxygen, will try viscous lidocaine and monitor (2) Pneumonia: Code(s): J18.9 - Pneumonia, unspecified organism Status: Acute Assessment and Plan: Secondary to COVID-19. (3) Acute respiratory failure with hypoxia: Code(s): J96.01 - Acute respiratory failure with hypoxia Status: Acute Assessment and Plan: Secondary to COVID-19 pneumonia. (4) Hypertension: Code(s): I10 - Essential (primary) hypertension Status: Inactive Assessment and Plan: Blood pressure stable, last 107/57. Continue his home regimen with enalapril, metoprolol, and HCTZ. Subjective Date/time seen: 01/02/2020 Mr. West is a 49yo M admitted for acute respiratory failure secondary to COVID-19 pneumonia. Pt is presently on high flow at 60%CT chest positive for covid changes 12/23/2019, treated with remdesvir, steroids and plasma, Cxr still shows pneumonia I will cover for bacterial pneumonia, ordered BC and IV abx. Pt still needing oxygen, I have consulted ID for further recommendation. 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 Plan is to wean patient off high flow oxygen. Patient was seen by Dr. peterson does not suspect superinfection rather COVID-19 pneumonia slow recovery recommending to stop the dexamethasone, patient clinically symptoms are improving, will taper down patient oxygen will continue to monitor, will have a PT OT evaluate the patient and further recommendation to follow, today patient complains feels likely his toung is swallen most likely secondary to high-flow oxygen, will try viscous lidocaine and monitor Review of Systems Review of Systems: All systems reviewed & are unremarkable except as noted in HPI and below Exam Narrative: Exam Narrative: Moderatly obese Pat
[2020-01-03] VITALS (23 sets, daily range): BP systolic 124–140; BP diastolic 61–85; PULSE 73–95; RESP 18–25; TEMP 36.4–37.1; O2SAT 91–98
[2020-01-03] MEDS: ALBUTEROL SULFATE NEB 2.5 MG/0.5 ML INH 5 MG INHALATION ×4 (02:34→21:11)
[2020-01-03 04:50] LABS: Basophils Absolute Auto 0.1 K/mm3 (0.0-0.1); Basophils Percent Auto 0.4 % (0.2-1.2); Eosinophils Absolute Auto 0.4 K/mm3 (0-0.3); Eosinophils Percent Auto 3.1 % (0-4.4); Hematocrit 44.6 % (42.0-52.0); Hemoglobin 15.2 g/dL (14.0-18.0); Immature Granulocyte Absolute 0.53 K/mm3 (0.00-0.031); Immature Granulocyte Percent A 4.7 % (0-0.5); Lymphocytes Absolute Auto 0.81 K/mm3 (0.9-3.2); Lymphocytes Percent Auto 7.1 % (18.3-44.2); Mean Corpuscular HGB Conc 34.1 g/dl (32-36); Monocytes Absolute Auto 0.5 K/mm3 (0.1-0.6); Neutrophils Absolute Auto 9.2 K/mm3 (1.3-6.7); Neutrophils Percent Auto 80.7 % (45.5-73.1); Platelet Count Result 184 k/mm3 (150-375); Red Blood Count 5.07 M/mm3 (4.6-6.20); Red Cell Distribution Width 12.8 % (11.5-14.5); White Blood Count 11.4 K/mm3 (4.5-10.0)
[2020-01-03 05:02] LABS: Alanine Aminotransferase 118 U/L (4-50); Albumin Level 3.1 g/dL (3.5-5.1); Alkaline Phosphatase 95 U/L (38-126); Anion Gap 6 mmol/L (8-16); Aspartate Amino Transferase 71 U/L (17-59); Bilirubin,Total 0.7 mg/dL (0.2-1.3); Blood Urea Nitrogen 15 mg/dL (9-20); Calcium 8.5 mg/dL (8.4-10.2); Carbon Dioxide 31 mmol/L (22-30); Chloride 97 mmol/L (98-107); Estimated CRCL calculation 148 ml/min; Estimated Glomerular Filt Rate > 60; Glucose 116 mg/dL (75-110); Sodium 134 mmol/L (137-145)
[2020-01-03] MEDS: guaiFENesin 600 MG/DEXTROMETHORPHAN 30 MG SR TAB 12 HR 1 TAB PO ×2 (08:41→21:14)
[2020-01-03] MEDS: THERAPEUTIC MULTIVITAMINS/MINERALS TAB (*BKC) 1 TABLET PO (08:41)
[2020-01-03] MEDS: CHOLECALCIFEROL 1,000 UNITS TABLET 1000 UNITS PO (08:41)
[2020-01-03] MEDS: ASCORBIC ACID 500 MG TABLET PO (08:41)
[2020-01-03] MEDS: ZINC SULFATE 220 MG CAPSULE PO (08:41)
[2020-01-03] MEDS: BENZONATATE 100 MG CAPSULE PO ×3 (08:41→17:36)
[2020-01-03] MEDS: METOPROLOL SUCCINATE EXT REL 100 MG TABCR PO (08:41)
[2020-01-03] MEDS: hydroCHLOROthiazide 25 MG TABLET PO (08:41)
[2020-01-03] MEDS: PANTOPRAZOLE 40 MG TABLET PO (08:41)
[2020-01-03] MEDS: ASPIRIN 81 MG ENTERIC TABLET PO (08:42)
[2020-01-03] MEDS: ENALAPRIL MALEATE 10 MG TABLET PO (08:42)
[2020-01-03] MEDS: ENOXAPARIN 40 MG/0.4 ML SYRINGE SUB-Q ×2 (08:42→21:15)
--- NOTE | 2020-01-03 14:27 | PCDIET ---
Weekly nutritional screen. Patient is tolerating current diet with adequate intake. No weight loss reported. No nutritional needs at this time.
--- NOTE | 2020-01-03 15:29 | PM.IMPN ---
Progress Note: A&P Assessment and Plan (1) COVID-19: Code(s): U07.1 - COVID-19 Status: Acute Assessment and Plan: Symptoms began around 12/17/19, COVID positive 12/20 per patient. Imaging shows bilateral pneumonia, CTA shows no evidence of PE. Pt still on high flow oxygen, been here roughly two weeks Continue Remdesivir (completed) and dexamethasone (day 9). Received convalescent plasma 12/25. Continue to monitor with continuous pulse ox. DVT prophylaxis with Lovenox. GI prophylaxis with Protonix. Continue supportive therapy with Mucinex, Tessalon Perles, zinc and vitamin-C and D supplementation. Added Iv rocephin and zithromax, pt also on iv steroids - As Cxr shows PNEUMONIA May consult ID for ongoing deoxygenation and oxygen need 01/03/20 15:29 Mr. West is a 49yo M admitted for acute respiratory failure secondary to COVID-19 pneumonia. Pt was on high flow at 60%CT chest positive for covid changes 12/23/2019, treated with remdesvir, steroids and plasma, Cxr still shows pneumonia started for bacterial pneumonia, ordered BC and IV abx. Pt still needing oxygen, I have consulted ID for further recommendation. 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 Akers on 12/31 does not suspect superinfection rather COVID-19 pneumonia slow recovery patient did complete course dexamethasone as well as remdesivir and plasm, and does not recommend any more dexamethasone, patient clinically symptoms are improving, taperred down patient oxygen will continue to monitor, will have a PT OT evaluate the patient and further recommendation to follow. Patient continue to have slow recovery from COVID-19 pneumonia, will continue to monitor (2) Pneumonia: Code(s): J18.9 - Pneumonia, unspecified organism Status: Acute Assessment and Plan: Secondary to COVID-19. (3) Acute respiratory failure with hypoxia: Code(s): J96.01 - Acute respiratory failure with hypoxia Status: Acute Assessment and Plan: Secondary to COVID-19 pneumonia. (4) Hypertension: Code(s): I10 - Essential (primary) hypertension Status: Inactive Assessment and Plan: Blood pressure stable, last 107/57. Continue his home regimen with enalapril, metoprolol, and HCTZ. Subjective Date/time seen: 01/03/20 15:29 Mr. West is a 49yo M admitted for acute respiratory failure secondary to COVID-19 pneumonia. Pt was on high flow at 60%CT chest positive for covid changes 12/23/2019, treated with remdesvir, steroids and plasma, Cxr still shows pneumonia started for bacterial pneumonia, ordered BC and IV abx. Pt still needing oxygen, I have consulted ID for further recommendation. 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 Akers on 12/31 does not suspect superinfection rather COVID-19 pneumonia slow recovery patient did complete course dexamethasone as well as remdesivir and plasm, and does not recommend any more dexamethasone, patient clinically symptoms are improving, taperred down patient oxygen will continue to monitor, will have a PT OT evaluate the patient and further recommendation to follow. Patient continue to have slow recovery from COVID-19 pneumonia, will continue to monitor Review of Systems Review of Systems: All systems reviewed & are unremarkable except as noted in HPI and below Exam Narrative: Exam Narrative: Moderatly obese Patient is comfortable, NAD HEENT: eyes are clear and none icteric LUNGS:b/l fair air entry with ronchi HEART: RR S1S2 ABD: BS+, Soft and nontender Lower extremities: no edema SKIN: nonjaundiced Neuro: grossly intact. Objective Data Vital Signs Vital Signs: Vital Signs - 24 hr 01/02/20 16:00 01/02/20 18:00 01/02/20 20:00 Temperature 97.6 F Pulse
[2020-01-04] VITALS (22 sets, daily range): BP systolic 111–133; BP diastolic 55–79; PULSE 72–97; RESP 18–20; TEMP 35.7–36.6; O2SAT 93–99
[2020-01-04] MEDS: ALBUTEROL SULFATE NEB 2.5 MG/0.5 ML INH 5 MG INHALATION ×4 (02:46→21:53)
[2020-01-04 04:59] LABS: Basophils Percent Auto 0.5 % (0.2-1.2); Eosinophils Absolute Auto 0.3 K/mm3 (0-0.3); Eosinophils Percent Auto 3.4 % (0-4.4); Hematocrit 45.2 % (42.0-52.0); Hemoglobin 15.7 g/dL (14.0-18.0); Immature Granulocyte Absolute 0.38 K/mm3 (0.00-0.031); Immature Granulocyte Percent A 4.5 % (0-0.5); Lymphocytes Absolute Auto 0.91 K/mm3 (0.9-3.2); Lymphocytes Percent Auto 10.7 % (18.3-44.2); Mean Corpuscular HGB Conc 34.7 g/dl (32-36); Mean Corpuscular Hemoglobin 30.5 pg (26-34); Mean Corpuscular Volume 87.9 fl (80-100); Monocytes Absolute Auto 0.4 K/mm3 (0.1-0.6); Monocytes Percent Auto 4.4 % (2.6-8.5); Neutrophils Absolute Auto 6.5 K/mm3 (1.3-6.7); Neutrophils Percent Auto 76.5 % (45.5-73.1); Platelet Count Result 160 k/mm3 (150-375); Red Blood Count 5.14 M/mm3 (4.6-6.20); Red Cell Distribution Width 12.9 % (11.5-14.5); White Blood Count 8.5 K/mm3 (4.5-10.0)
[2020-01-04 05:14] LABS: Alanine Aminotransferase 110 U/L (4-50); Albumin Level 3.3 g/dL (3.5-5.1); Alkaline Phosphatase 97 U/L (38-126); Anion Gap 6 mmol/L (8-16); Aspartate Amino Transferase 69 U/L (17-59); Bilirubin,Total 0.7 mg/dL (0.2-1.3); Blood Urea Nitrogen 14 mg/dL (9-20); Calcium 8.7 mg/dL (8.4-10.2); Carbon Dioxide 32 mmol/L (22-30); Chloride 97 mmol/L (98-107); Estimated CRCL calculation 168 ml/min; Estimated Glomerular Filt Rate > 60; Glucose 113 mg/dL (75-110); Potassium 4.2 mmol/L (3.4-5.0); Sodium 135 mmol/L (137-145)
[2020-01-04] MEDS: ASCORBIC ACID 500 MG TABLET PO (10:24)
[2020-01-04] MEDS: guaiFENesin 600 MG/DEXTROMETHORPHAN 30 MG SR TAB 12 HR 1 TAB PO ×2 (10:24→21:15)
[2020-01-04] MEDS: ASPIRIN 81 MG ENTERIC TABLET PO (10:24)
[2020-01-04] MEDS: ENOXAPARIN 40 MG/0.4 ML SYRINGE SUB-Q ×2 (10:24→21:15)
[2020-01-04] MEDS: THERAPEUTIC MULTIVITAMINS/MINERALS TAB (*BKC) 1 TABLET PO (10:24)
[2020-01-04] MEDS: hydroCHLOROthiazide 25 MG TABLET PO (10:24)
[2020-01-04] MEDS: CHOLECALCIFEROL 1,000 UNITS TABLET 1000 UNITS PO (10:24)
[2020-01-04] MEDS: BENZONATATE 100 MG CAPSULE PO ×3 (10:25→17:27)
[2020-01-04] MEDS: PANTOPRAZOLE 40 MG TABLET PO (10:25)
[2020-01-04] MEDS: ENALAPRIL MALEATE 10 MG TABLET PO (10:25)
[2020-01-04] MEDS: ZINC SULFATE 220 MG CAPSULE PO (10:25)
[2020-01-04] MEDS: METOPROLOL SUCCINATE EXT REL 100 MG TABCR PO (10:25)
--- NOTE | 2020-01-04 15:03 | PM.IMPN ---
Progress Note: A&P Assessment and Plan (1) COVID-19: Code(s): U07.1 - COVID-19 Status: Acute Assessment and Plan: Symptoms began around 12/17/19, COVID positive 12/20 per patient. Imaging shows bilateral pneumonia, CTA shows no evidence of PE. Pt still on high flow oxygen, been here roughly two weeks Continue Remdesivir (completed) and dexamethasone (day 9). Received convalescent plasma 12/25. Continue to monitor with continuous pulse ox. DVT prophylaxis with Lovenox. GI prophylaxis with Protonix. Continue supportive therapy with Mucinex, Tessalon Perles, zinc and vitamin-C and D supplementation. Added Iv rocephin and zithromax, pt also on iv steroids - As Cxr shows PNEUMONIA May consult ID for ongoing deoxygenation and oxygen need 01/04/20 15:03 Mr. West is a 49yo M admitted for acute respiratory failure secondary to COVID-19 pneumonia. Pt was on high flow at 60%CT chest positive for covid changes 12/23/2019, treated with remdesvir, steroids and plasma, Cxr still shows pneumonia started for bacterial pneumonia, ordered BC and IV abx. Pt still needing oxygen, I have consulted ID for further recommendation. 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 Akers on 12/31 does not suspect superinfection rather COVID-19 pneumonia slow recovery patient did complete course dexamethasone as well as remdesivir and plasma and does not recommend any more dexamethasone, patient clinically symptoms were improving on 01/02 we taperred down patient oxygen flow rate however patient became hypoxic and had to increase back flow rate to 15, will continue to monitor, today again patient complains or sore mouth, however there are no lesions or thrush, most likely patient has information test buds, will give the patient viscous lidocaine will have a PT OT evaluate the patient and further recommendation to follow. Patient continue to have slow recovery from COVID-19 pneumonia, will continue to monitor (2) Pneumonia: Code(s): J18.9 - Pneumonia, unspecified organism Status: Acute Assessment and Plan: Secondary to COVID-19. (3) Acute respiratory failure with hypoxia: Code(s): J96.01 - Acute respiratory failure with hypoxia Status: Acute Assessment and Plan: Secondary to COVID-19 pneumonia. (4) Hypertension: Code(s): I10 - Essential (primary) hypertension Status: Inactive Assessment and Plan: Blood pressure stable, last 107/57. Continue his home regimen with enalapril, metoprolol, and HCTZ. Subjective Date/time seen: 01/04/20 15:03 Mr. West is a 49yo M admitted for acute respiratory failure secondary to COVID-19 pneumonia. Pt was on high flow at 60%CT chest positive for covid changes 12/23/2019, treated with remdesvir, steroids and plasma, Cxr still shows pneumonia started for bacterial pneumonia, ordered BC and IV abx. Pt still needing oxygen, I have consulted ID for further recommendation. 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 Akers on 12/31 does not suspect superinfection rather COVID-19 pneumonia slow recovery patient did complete course dexamethasone as well as remdesivir and plasma and does not recommend any more dexamethasone, patient clinically symptoms were improving on 01/02 we taperred down patient oxygen flow rate however patient became hypoxic and had to increase back flow rate to 15, will continue to monitor, today again patient complains or sore mouth, however there are no lesions or thrush, most likely patient has information test buds, will give the patient viscous lidocaine will have a PT OT evaluate the patient and further recommendation to follow. Patient continue to have slow recovery from COVID-19 pneumonia, will continue to monitor Sirena
[2020-01-04] MEDS: LIDOCAINE HCL 2% VISC SOLN 15 ML UDC PO (17:27)
[2020-01-05] VITALS (15 sets, daily range): BP systolic 108–120; BP diastolic 68–91; PULSE 73–95; RESP 18–20; TEMP 36.2–36.7; O2SAT 93–99
[2020-01-05] MEDS: BENZOCAINE 20% DENTAL GEL 9 GM TUBE 1 APPLIC BY MOUTH (06:28)
--- NOTE | 2020-01-05 06:30 | PCRCNOTE ---
Window of time for administration has passed. See next scheduled administration.
[2020-01-05] MEDS: METOPROLOL SUCCINATE EXT REL 100 MG TABCR PO (08:03)
[2020-01-05] MEDS: BENZONATATE 100 MG CAPSULE PO ×3 (08:03→17:21)
[2020-01-05] MEDS: ENALAPRIL MALEATE 10 MG TABLET PO (08:03)
[2020-01-05] MEDS: PANTOPRAZOLE 40 MG TABLET PO (08:03)
[2020-01-05] MEDS: hydroCHLOROthiazide 25 MG TABLET PO (08:03)
[2020-01-05] MEDS: ENOXAPARIN 40 MG/0.4 ML SYRINGE SUB-Q ×2 (08:03→21:12)
[2020-01-05] MEDS: ASCORBIC ACID 500 MG TABLET PO (08:03)
[2020-01-05] MEDS: CHOLECALCIFEROL 1,000 UNITS TABLET 1000 UNITS PO (08:03)
[2020-01-05] MEDS: guaiFENesin 600 MG/DEXTROMETHORPHAN 30 MG SR TAB 12 HR 1 TAB PO ×2 (08:03→21:12)
[2020-01-05] MEDS: THERAPEUTIC MULTIVITAMINS/MINERALS TAB (*BKC) 1 TABLET PO (08:04)
[2020-01-05] MEDS: ACETAMINOPHEN 325 MG TABLET 650 MG PO (08:04)
[2020-01-05] MEDS: ASPIRIN 81 MG ENTERIC TABLET PO (08:04)
[2020-01-05] MEDS: ZINC SULFATE 220 MG CAPSULE PO (08:05)
[2020-01-05 08:51] LABS: Basophils Absolute Auto 0.1 K/mm3 (0.0-0.1); Basophils Percent Auto 0.6 % (0.2-1.2); Eosinophils Absolute Auto 0.2 K/mm3 (0-0.3); Hematocrit 48.6 % (42.0-52.0); Hemoglobin 16.5 g/dL (14.0-18.0); Immature Granulocyte Absolute 0.22 K/mm3 (0.00-0.031); Immature Granulocyte Percent A 2.8 % (0-0.5); Lymphocytes Absolute Auto 1.07 K/mm3 (0.9-3.2); Lymphocytes Percent Auto 13.5 % (18.3-44.2); Mean Corpuscular Hemoglobin 30.4 pg (26-34); Mean Corpuscular Volume 89.7 fl (80-100); Mean Platelet Volume 9.6 fl (7.4-10.4); Monocytes Absolute Auto 0.7 K/mm3 (0.1-0.6); Monocytes Percent Auto 8.4 % (2.6-8.5); Neutrophils Absolute Auto 5.7 K/mm3 (1.3-6.7); Neutrophils Percent Auto 71.7 % (45.5-73.1); Platelet Count Result 178 k/mm3 (150-375); Red Blood Count 5.42 M/mm3 (4.6-6.20)
[2020-01-05 09:02] LABS: Alanine Aminotransferase 126 U/L (4-50); Albumin Level 3.7 g/dL (3.5-5.1); Alkaline Phosphatase 87 U/L (38-126); Anion Gap 5 mmol/L (8-16); Aspartate Amino Transferase 85 U/L (17-59); Bilirubin,Total 0.7 mg/dL (0.2-1.3); Blood Urea Nitrogen 13 mg/dL (9-20); Calcium 9.1 mg/dL (8.4-10.2); Carbon Dioxide 33 mmol/L (22-30); Chloride 97 mmol/L (98-107); Estimated CRCL calculation 168 ml/min; Estimated Glomerular Filt Rate > 60; Glucose 100 mg/dL (75-110); Potassium 4.2 mmol/L (3.4-5.0); Sodium 135 mmol/L (137-145)
[2020-01-05] MEDS: ALBUTEROL SULFATE NEB 2.5 MG/0.5 ML INH 5 MG INHALATION ×3 (09:24→20:41)
--- NOTE | 2020-01-05 13:37 | PC.NURSE ---
This patient, Bhargav West, was transferred to [facility] on 01/05/20 at 1314. Personal belongings sent with patient. Report given to ELISE Robledo. Appropriate documentation sent with patient.
--- NOTE | 2020-01-05 14:40 | PM.IMPN ---
Progress Note: A&P Assessment and Plan (1) COVID-19: Code(s): U07.1 - COVID-19 Status: Acute Assessment and Plan: Symptoms began around 12/17/19, COVID positive 12/20 per patient. Imaging shows bilateral pneumonia, CTA shows no evidence of PE. Pt still on high flow oxygen, been here roughly two weeks Continue Remdesivir (completed) and dexamethasone (day 9). Received convalescent plasma 12/25. Continue to monitor with continuous pulse ox. DVT prophylaxis with Lovenox. GI prophylaxis with Protonix. Continue supportive therapy with Mucinex, Tessalon Perles, zinc and vitamin-C and D supplementation. Added Iv rocephin and zithromax, pt also on iv steroids - As Cxr shows PNEUMONIA May consult ID for ongoing deoxygenation and oxygen need 01/05/20 14:40 Mr. Wset is a 49yo M admitted for acute respiratory failure secondary to COVID-19 pneumonia. Pt was on high flow at 60%CT chest positive for covid changes 12/23/2019, treated with remdesvir, steroids and plasma, Cxr still shows pneumonia started for bacterial pneumonia, ordered BC and IV abx. Pt still needing oxygen, I have consulted ID for further recommendation. 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 Akers on 12/31 does not suspect superinfection rather COVID-19 pneumonia slow recovery patient did complete course dexamethasone as well as remdesivir and plasma and does not recommend any more dexamethasone, patient clinically symptoms were improving on 01/02 we taperred down patient oxygen flow rate however patient became hypoxic and had to increase back flow rate to 15, will continue to monitor. Today patient is feeling much better not a short of breath we have tapered patient oxygen to 90 is O2 saturation close to 90, patient states is better appetite and his mouth is not as sore, patient clinically stable will transfer patient out of IMU to medical will continue to monitor goal is to wean the patient off to less than 6 L per nasal cannula and possibly discharge home soon. (2) Pneumonia: Code(s): J18.9 - Pneumonia, unspecified organism Status: Acute Assessment and Plan: Secondary to COVID-19. (3) Acute respiratory failure with hypoxia: Code(s): J96.01 - Acute respiratory failure with hypoxia Status: Acute Assessment and Plan: Secondary to COVID-19 pneumonia. (4) Hypertension: Code(s): I10 - Essential (primary) hypertension Status: Inactive Assessment and Plan: Blood pressure stable, last 107/57. Continue his home regimen with enalapril, metoprolol, and HCTZ. Subjective Date/time seen: 01/05/20 14:40 Mr. West is a 49yo M admitted for acute respiratory failure secondary to COVID-19 pneumonia. Pt was on high flow at 60%CT chest positive for covid changes 12/23/2019, treated with remdesvir, steroids and plasma, Cxr still shows pneumonia started for bacterial pneumonia, ordered BC and IV abx. Pt still needing oxygen, I have consulted ID for further recommendation. 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 Akers on 12/31 does not suspect superinfection rather COVID-19 pneumonia slow recovery patient did complete course dexamethasone as well as remdesivir and plasma and does not recommend any more dexamethasone, patient clinically symptoms were improving on 01/02 we taperred down patient oxygen flow rate however patient became hypoxic and had to increase back flow rate to 15, will continue to monitor. Today patient is feeling much better not a short of breath we have tapered patient oxygen to 90 is O2 saturation close to 90, patient states is better appetite and his mouth is not as sore, patient clinically stable will transfer patient out of IMU to medical will continue to monitor goal is to wean
[2020-01-06] VITALS (23 sets, daily range): BP systolic 103–128; BP diastolic 56–78; PULSE 76–100; RESP 18–20; TEMP 36.3–36.9; O2SAT 86–98
[2020-01-06] MEDS: ALBUTEROL SULFATE NEB 2.5 MG/0.5 ML INH 5 MG INHALATION ×4 (03:31→21:03)
[2020-01-06 06:44] LABS: Basophils Percent Auto 0.6 % (0.2-1.2); Eosinophils Absolute Auto 0.2 K/mm3 (0-0.3); Eosinophils Percent Auto 2.5 % (0-4.4); Hematocrit 46.5 % (42.0-52.0); Hemoglobin 15.7 g/dL (14.0-18.0); Immature Granulocyte Absolute 0.14 K/mm3 (0.00-0.031); Immature Granulocyte Percent A 2.1 % (0-0.5); Lymphocytes Absolute Auto 1.11 K/mm3 (0.9-3.2); Lymphocytes Percent Auto 16.3 % (18.3-44.2); Mean Corpuscular HGB Conc 33.8 g/dl (32-36); Mean Corpuscular Hemoglobin 30.4 pg (26-34); Mean Corpuscular Volume 89.9 fl (80-100); Mean Platelet Volume 9.2 fl (7.4-10.4); Monocytes Absolute Auto 0.7 K/mm3 (0.1-0.6); Monocytes Percent Auto 10.1 % (2.6-8.5); Neutrophils Absolute Auto 4.7 K/mm3 (1.3-6.7); Neutrophils Percent Auto 68.4 % (45.5-73.1); Platelet Count Result 164 k/mm3 (150-375); Red Blood Count 5.17 M/mm3 (4.6-6.20); Red Cell Distribution Width 12.9 % (11.5-14.5); White Blood Count 6.8 K/mm3 (4.5-10.0)
[2020-01-06 06:56] LABS: Alanine Aminotransferase 107 U/L (4-50); Albumin Level 3.5 g/dL (3.5-5.1); Alkaline Phosphatase 92 U/L (38-126); Anion Gap 3 mmol/L (8-16); Aspartate Amino Transferase 64 U/L (17-59); Bilirubin,Total 0.6 mg/dL (0.2-1.3); Blood Urea Nitrogen 14 mg/dL (9-20); Calcium 8.9 mg/dL (8.4-10.2); Carbon Dioxide 35 mmol/L (22-30); Chloride 99 mmol/L (98-107); Estimated CRCL calculation 148 ml/min; Estimated Glomerular Filt Rate > 60; Glucose 112 mg/dL (75-110); Potassium 4.2 mmol/L (3.4-5.0); Sodium 137 mmol/L (137-145)
[2020-01-06] MEDS: PANTOPRAZOLE 40 MG TABLET PO (07:46)
[2020-01-06] MEDS: THERAPEUTIC MULTIVITAMINS/MINERALS TAB (*BKC) 1 TABLET PO (07:46)
[2020-01-06] MEDS: hydroCHLOROthiazide 25 MG TABLET PO (07:46)
[2020-01-06] MEDS: ZINC SULFATE 220 MG CAPSULE PO (07:46)
[2020-01-06] MEDS: ASCORBIC ACID 500 MG TABLET PO (07:46)
[2020-01-06] MEDS: guaiFENesin 600 MG/DEXTROMETHORPHAN 30 MG SR TAB 12 HR 1 TAB PO ×2 (07:46→22:06)
[2020-01-06] MEDS: ASPIRIN 81 MG ENTERIC TABLET PO (07:46)
[2020-01-06] MEDS: ENOXAPARIN 40 MG/0.4 ML SYRINGE SUB-Q ×2 (07:47→22:06)
[2020-01-06] MEDS: CHOLECALCIFEROL 1,000 UNITS TABLET 1000 UNITS PO (07:47)
[2020-01-06] MEDS: ENALAPRIL MALEATE 10 MG TABLET PO (07:47)
[2020-01-06] MEDS: METOPROLOL SUCCINATE EXT REL 100 MG TABCR PO (07:47)
[2020-01-06] MEDS: BENZONATATE 100 MG CAPSULE PO ×3 (07:47→17:22)
[2020-01-06] MEDS: ACETAMINOPHEN 325 MG TABLET 650 MG PO ×2 (07:50→16:27)
--- NOTE | 2020-01-06 14:25 | HOMEO2EVAL ---
Home Oxygen Evaluation RC: Home Oxygen (O2) Evaluation Start: 01/06/20 12:01 Freq: ONCE Status: Active Protocol: RPE Activity Type Activity Date Activity User E-Sign Co-Sign Detail Recorded Client Recorded Date Recorded By Document 01/06/20 12:05 [email or web address] [email or web address] 01/06/20 14:25 GEOFF Document 01/06/20 12:07 [email or web address] [email or web address] 01/06/20 14:25 GEOFF Document 01/06/20 12:09 GEOFF [email or web address] 01/06/20 14:25 GEOFF Document 01/06/20 12:10 GEOFF [email or web address] 01/06/20 14:25 GEOFF Document 01/06/20 12:15 GEOFF [email or web address] 01/06/20 14:25 GEOFF Document 01/06/20 12:18 [email or web address] [email or web address] 01/06/20 14:25 GEOFF Document 01/06/20 12:25 [email or web address] [email or web address] 01/06/20 14:25 GEOFF 01/06/20 01/06/20 01/06/20 12:05 12:07 12:09 Home O2 Evaluation Test Phase Resting Resting Resting Oxygen Delivery Room Air High Flow Nasal High Flow Nasal Cannula Cannula Oxygen Flow Rate (L/min) 2 3 Pulse Oximetry (90-100 %) 86 L 86 L 87 L Home Oxygen Evaluation Comments Treatment Charges 01/06/20 01/06/20 01/06/20 12:10 12:15 12:18 Home O2 Evaluation Test Phase Resting Resting Exercise Oxygen Delivery High Flow Nasal High Flow Nasal High Flow Nasal Cannula Cannula Cannula Oxygen Flow Rate (L/min) 4 5 5 Pulse Oximetry (90-100 %) 87 L 93 90 Home Oxygen Evaluation Comments Treatment Charges 01/06/20 12:25 Home O2 Evaluation Test Phase Resting Oxygen Delivery High Flow Nasal Cannula Oxygen Flow Rate (L/min) 5 Pulse Oximetry (90-100 %) 93 Home Oxygen Evaluation Comments PT REQUIRES 5 LITERS HIGH FLOW CANNULA WITH REST AND EXERTION Treatment Charges O2 Evaluation
--- NOTE | 2020-01-06 14:29 | PCRCNOTE ---
HOME O2 EVAL DONE, 5 LITERS HIGH FLOW REST AND EXERTION. TANK IN ROOM FOR DISCHARGE, PT AWARE OF CALLING DME WHEN ARRIVES HOME.
--- NOTE | 2020-01-06 15:08 | PM.IMPN ---
Progress Note: A&P Assessment and Plan (1) COVID-19: Code(s): U07.1 - COVID-19 Status: Acute Assessment and Plan: Symptoms began around 12/17/19, COVID positive 12/20 per patient. Imaging shows bilateral pneumonia, CTA shows no evidence of PE. Pt still on high flow oxygen, been here roughly two weeks Continue Remdesivir (completed) and dexamethasone (day 9). Received convalescent plasma 12/25. Continue to monitor with continuous pulse ox. DVT prophylaxis with Lovenox. GI prophylaxis with Protonix. Continue supportive therapy with Mucinex, Tessalon Perles, zinc and vitamin-C and D supplementation. Added Iv rocephin and zithromax, pt also on iv steroids - As Cxr shows PNEUMONIA May consult ID for ongoing deoxygenation and oxygen need 01/06/20 15:08 Mr. West is a 49yo M admitted for acute respiratory failure secondary to COVID-19 pneumonia. Pt was on high flow at 60%CT chest positive for covid changes 12/23/2019, treated with remdesvir, steroids and plasma, Cxr still shows pneumonia started for bacterial pneumonia, ordered BC and IV abx. Pt still needing oxygen, I have consulted ID for further recommendation. 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 Akers on 12/31 does not suspect superinfection rather COVID-19 pneumonia slow recovery patient did complete course dexamethasone as well as remdesivir and plasma and does not recommend any more dexamethasone, patient clinically symptoms were improving on 01/02 we taperred down patient oxygen flow rate however patient became hypoxic and had to increase back flow rate to 15, will continue to monitor. on on 01/04 patient was feeling much better not as short of breath, patient oxygen to O2 saturation close to 90 on 9 L, Today on 01/05 patient is on 6L and O2 sats are close to 90, he is ambulating in the room without any difficulty and took shower, patient has been complaint sore tongue patient was given viscous lidocaine does help some but the pain is still persist, the sores appear more like crators on posterior aspect of the tongue there are no pustules, vesicle, erythema, or thrush, etiology uncertain will have Dr. Akers evaluate the patient for further recommendation, overall patient's symptoms are improving his oxygen saturation is improving if remains clinically stable patient can be discharged home soon. (2) Pneumonia: Code(s): J18.9 - Pneumonia, unspecified organism Status: Acute Assessment and Plan: Secondary to COVID-19. (3) Acute respiratory failure with hypoxia: Code(s): J96.01 - Acute respiratory failure with hypoxia Status: Acute Assessment and Plan: Secondary to COVID-19 pneumonia. (4) Hypertension: Code(s): I10 - Essential (primary) hypertension Status: Inactive Assessment and Plan: Blood pressure stable, last 107/57. Continue his home regimen with enalapril, metoprolol, and HCTZ. Subjective Date/time seen: 01/06/20 15:08 Mr. West is a 49yo M admitted for acute respiratory failure secondary to COVID-19 pneumonia. Pt was on high flow at 60%CT chest positive for covid changes 12/23/2019, treated with remdesvir, steroids and plasma, Cxr still shows pneumonia started for bacterial pneumonia, ordered BC and IV abx. Pt still needing oxygen, I have consulted ID for further recommendation. 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 Akers on 12/31 does not suspect superinfection rather COVID-19 pneumonia slow recovery patient did complete course dexamethasone as well as remdesivir and plasma and does not recommend any more dexamethasone, patient clinically symptoms were improving on 01/02 we taperred down patient oxygen flow rate however patient became hypoxic and had to increase back fl
[2020-01-07] VITALS (8 sets, daily range): BP systolic 112–124; BP diastolic 70–81; PULSE 70–92; RESP 18; TEMP 36.6–36.8; O2SAT 94–98
[2020-01-07] MEDS: ALBUTEROL SULFATE NEB 2.5 MG/0.5 ML INH 5 MG INHALATION ×2 (01:58→09:01)
[2020-01-07 06:28] LABS: Basophils Percent Auto 0.8 % (0.2-1.2); Eosinophils Absolute Auto 0.2 K/mm3 (0-0.3); Eosinophils Percent Auto 3.6 % (0-4.4); Hematocrit 42.1 % (42.0-52.0); Hemoglobin 14.3 g/dL (14.0-18.0); Immature Granulocyte Absolute 0.08 K/mm3 (0.00-0.031); Immature Granulocyte Percent A 1.5 % (0-0.5); Lymphocytes Absolute Auto 1.03 K/mm3 (0.9-3.2); Lymphocytes Percent Auto 19.5 % (18.3-44.2); Mean Corpuscular Hemoglobin 29.9 pg (26-34); Mean Corpuscular Volume 88.1 fl (80-100); Mean Platelet Volume 9.4 fl (7.4-10.4); Monocytes Absolute Auto 0.7 K/mm3 (0.1-0.6); Monocytes Percent Auto 12.9 % (2.6-8.5); Neutrophils Absolute Auto 3.3 K/mm3 (1.3-6.7); Neutrophils Percent Auto 61.7 % (45.5-73.1); Platelet Count Result 142 k/mm3 (150-375); Red Blood Count 4.78 M/mm3 (4.6-6.20); Red Cell Distribution Width 12.4 % (11.5-14.5); White Blood Count 5.3 K/mm3 (4.5-10.0)
[2020-01-07 06:50] LABS: Alanine Aminotransferase 96 U/L (4-50); Albumin Level 3.2 g/dL (3.5-5.1); Alkaline Phosphatase 89 U/L (38-126); Anion Gap 5 mmol/L (8-16); Aspartate Amino Transferase 64 U/L (17-59); Bilirubin,Total 0.5 mg/dL (0.2-1.3); Blood Urea Nitrogen 12 mg/dL (9-20); Calcium 8.8 mg/dL (8.4-10.2); Carbon Dioxide 31 mmol/L (22-30); Chloride 101 mmol/L (98-107); Estimated CRCL calculation 168 ml/min; Estimated Glomerular Filt Rate > 60; Glucose 103 mg/dL (75-110); Potassium 4.1 mmol/L (3.4-5.0); Sodium 137 mmol/L (137-145)
[2020-01-07] MEDS: ZINC SULFATE 220 MG CAPSULE PO (08:33)
[2020-01-07] MEDS: THERAPEUTIC MULTIVITAMINS/MINERALS TAB (*BKC) 1 TABLET PO (08:33)
[2020-01-07] MEDS: CHOLECALCIFEROL 1,000 UNITS TABLET 1000 UNITS PO (08:33)
[2020-01-07] MEDS: hydroCHLOROthiazide 25 MG TABLET PO (08:33)
[2020-01-07] MEDS: guaiFENesin 600 MG/DEXTROMETHORPHAN 30 MG SR TAB 12 HR 1 TAB PO (08:33)
[2020-01-07] MEDS: ASCORBIC ACID 500 MG TABLET PO (08:33)
[2020-01-07] MEDS: ASPIRIN 81 MG ENTERIC TABLET PO (08:33)
[2020-01-07] MEDS: ENALAPRIL MALEATE 10 MG TABLET PO (08:33)
[2020-01-07] MEDS: PANTOPRAZOLE 40 MG TABLET PO (08:33)
[2020-01-07] MEDS: METOPROLOL SUCCINATE EXT REL 100 MG TABCR PO (08:33)
[2020-01-07] MEDS: BENZONATATE 100 MG CAPSULE PO (08:33)
[2020-01-07] MEDS: ENOXAPARIN 40 MG/0.4 ML SYRINGE SUB-Q (08:34)
--- NOTE | 2020-01-07 11:55 | PM.DS ---
DS: Admitting Diagnosis Admitting Diagnosis Admitting Diagnosis: COVID pneumonia DS: Discharge Diagnosis Discharge Diagnosis (1) COVID-19: Code(s): U07.1 - COVID-19 Status: Acute Assessment and Plan: Symptoms began around 12/17/19, COVID positive 12/20 per patient. Imaging shows bilateral pneumonia, CTA shows no evidence of PE. Pt still on high flow oxygen, been here roughly two weeks Continue Remdesivir (completed) and dexamethasone (day 9). Received convalescent plasma 12/25. Continue to monitor with continuous pulse ox. DVT prophylaxis with Lovenox. GI prophylaxis with Protonix. Continue supportive therapy with Mucinex, Tessalon Perles, zinc and vitamin-C and D supplementation. Added Iv rocephin and zithromax, pt also on iv steroids - As Cxr shows PNEUMONIA May consult ID for ongoing deoxygenation and oxygen need 01/06/20 15:08 Mr. West is a 49yo M admitted for acute respiratory failure secondary to COVID-19 pneumonia. Pt was on high flow at 60%CT chest positive for covid changes 12/23/2019, treated with remdesvir, steroids and plasma, Cxr still shows pneumonia started for bacterial pneumonia, ordered BC and IV abx. Pt still needing oxygen, I have consulted ID for further recommendation. 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 Akers on 12/31 does not suspect superinfection rather COVID-19 pneumonia slow recovery patient did complete course dexamethasone as well as remdesivir and plasma and does not recommend any more dexamethasone, patient clinically symptoms were improving on 01/02 we taperred down patient oxygen flow rate however patient became hypoxic and had to increase back flow rate to 15, will continue to monitor. on on 01/04 patient was feeling much better not as short of breath, patient oxygen to O2 saturation close to 90 on 9 L, Today on 01/05 patient is on 6L and O2 sats are close to 90, he is ambulating in the room without any difficulty and took shower, patient has been complaint sore tongue patient was given viscous lidocaine does help some but the pain is still persist, the sores appear more like crators on posterior aspect of the tongue there are no pustules, vesicle, erythema, or thrush, etiology uncertain will have Dr. Akers evaluate the patient for further recommendation, overall patient's symptoms are improving his oxygen saturation is improving if remains clinically stable patient can be discharged home soon. (2) Pneumonia: Code(s): J18.9 - Pneumonia, unspecified organism Status: Acute Assessment and Plan: Secondary to COVID-19. (3) Acute respiratory failure with hypoxia: Code(s): J96.01 - Acute respiratory failure with hypoxia Status: Acute Assessment and Plan: Secondary to COVID-19 pneumonia. (4) Hypertension: Code(s): I10 - Essential (primary) hypertension Status: Inactive Assessment and Plan: Blood pressure stable, last 107/57. Continue his home regimen with enalapril, metoprolol, and HCTZ. DS: Summary Hospital Course Reason for hospitalization: Chief complaint: COVID pneumonia Narrative: Bhargav West is a 49 year old male with PMHx significant for HTN, patient has had sob, dry cough spells for over a week now, had Covid test done that came back positive 2 days ago. He has had fevers, chills, dry cough spells, worsening sob mainly at exertion pulse ox at home has been in between 88% and 90%, denies loss of taste or smell, n/v/abdominal pain/diarrhea. Preliminary work up in ED was significant for B/L infiltrates on chest xr. Hospital Course: Mr. West is a 49yo M admitted for acute respiratory failure secondary to COVID-19 pneumonia. Pt was on high flow at 60%CT chest positive for covid changes 12/23/2019, treated with remde
--- NOTE | 2020-01-07 14:25 | PC.NURSE ---
Pt has been discharged from this facility. Pt had IV removed, and discharge paperwork has been reviewed. Pt exhibited good understanding of all discharge instructions. Pt assisted by wheelchair to the fron of the hospital.
== END 2020-01-07 13:40 | disposition home or self-care (01) | DRG 177 ==
LOC: ANHED 18:18 → ANH3MEDSUR 19:34 → ANHIMU 12-26 13:38 → ANH3MEDSUR 01-07 11:55 → ANHIMU 01-10 11:00
PROVIDERS: Family Medicine; Physician Assistant; Admitting Provider Student in an Organized Health Care Education/Training Program; Emergency Provider Emergency Medicine; PCP Family Medicine; Visit Provider Family Medicine
DX: U07.1 COVID-19 (principal); J12.89 Other viral pneumonia; J96.01 Acute respiratory failure with hypoxia; I10 Essential (primary) hypertension; R74.01 Elevation of levels of liver transaminase levels; E66.9 Obesity, unspecified; Z68.39 Body mass index [BMI] 39.0-39.9, adult; Z79.899 Other long term (current) drug therapy
CPT/HCPCS: 36415; 36430; 36600; 71045; 71275; 80048; 80053; 80076; 82375; 82728; 82805; 83036; 83050; 83615; 83735; 84460; 84484; 85025; 85027; 85055; 85380; 85610; 85730; 86140; 86900; 86901; 87040; 93005; 94002; 94003; 94618; 94640; 96365; 96367; 96375; 99285; A9270; G0378; J0456; J0696; J1100; J1650; J2405; J7050; J8540; P9059; Q9967

== ENCOUNTER 2020-01-25 10:54 | Outpatient (CLI) | payer BC, SELFPAY ==
--- NOTE | ~2020-01-25 | XR_ITS ---
XR chest 2V 01/25/2020 11:09 Indication: Pneumonia. History of Covid. Procedure: PA and lateral views of the chest Comparison: 12/30/2019 Findings: Heart size normal. Patchy limited bilateral infiltrates have improved significantly, consis tent with resolving pneumonia. No pleural effusion, edema or pneumothorax. Impression: 1: Significant improvement of patchy bilateral airspace disease, compatible with resolving pneumonia. Reviewed, dictated and finalized at location A. MENT CONTROLLER Impression: 1: Significant improvement of patchy bilateral airspace disease, compatible wit h resolving pneumonia.
[2020-01-25 11:58] LABS: Alanine Aminotransferase 152 U/L (4-50); Alkaline Phosphatase 96 U/L (38-126); Anion Gap 6 mmol/L (8-16); Aspartate Amino Transferase 127 U/L (17-59); Bilirubin,Total 0.6 mg/dL (0.2-1.3); Blood Urea Nitrogen 11 mg/dL (9-20); Calcium 9.4 mg/dL (8.4-10.2); Carbon Dioxide 29 mmol/L (22-30); Chloride 104 mmol/L (98-107); Estimated Glomerular Filt Rate > 60; Glucose 96 mg/dL (75-110); Potassium 3.7 mmol/L (3.4-5.0); Sodium 139 mmol/L (137-145)
== END 2020-01-25 10:55 | disposition home or self-care (01) ==
PROVIDERS: PCP Family Medicine; Visit Provider Physician Assistant Medical
DX: Z09 Encounter for follow-up examination after completed treatment for conditions other than malignant neoplasm (principal); U07.1 COVID-19; J18.9 Pneumonia, unspecified organism; Z86.19 Personal history of other infectious and parasitic diseases; R79.89 Other specified abnormal findings of blood chemistry
CPT/HCPCS: 36415; 71046; 80053

== ENCOUNTER 2020-02-01 07:23 | Outpatient (CLI) | payer BC, SELFPAY ==
[2020-02-01 08:51] LABS: Hepatitis B Surface Antigen Negative (Negative)
[2020-02-01 08:57] LABS: HAV RESULT Negative (Negative); Hepatitis B Core IgM Result Negative (Negative)
[2020-02-01 09:08] LABS: Hepatitis C Virus Antibody Negative (Negative)
== END 2020-02-01 07:24 | disposition home or self-care (01) ==
LOC: ANHLAB 07:25
PROVIDERS: PCP Family Medicine; Visit Provider Physician Assistant Medical
DX: R79.89 Other specified abnormal findings of blood chemistry (principal)
CPT/HCPCS: 36415; 80074; 82977

== ENCOUNTER → 2020-02-13 07:38 | Outpatient (CLI) | payer BC, SELFPAY ==
--- NOTE | ~2020-02-13 | US_ITS ---
US abdomen complete EXAMINATION: US Abdomen Complete INDICATION: Abdomen pain. Abnormal lab studies. PROCEDURE: Realtime High Resolution abdomen ultrasound. COMPARISON: No prior studies for comparison FINDINGS: Gallbladder within normal limits. No gallstones, pericholecystic fluid, gallbladder wall t hickening or biliary dilatation. Common bile duct measures 4 mm. Liver echotexture is increased, consistent with fatty infiltration.. Pancreas within normal limits. Pancreatic tail is obscured by bowel gas. Spleen is unremarkeable. Renal echotexture is within norm al limits bilaterally without hydronephrosis, contour deforming mass or renal stone. Right kidney jl sures 14.2 cm. Left kidney measures 14.3 cm. Visualized aspects of the aorta and IVC are within normal limits. Portal vein is patent. No sonograph ic Fischer's sign indicated by the technologist. IMPRESSION: 1: Fatty infiltration of the liver. Reviewed, dictated and finalized at location A. ATTORNEY
== END ==
PROVIDERS: PCP Family Medicine; Visit Provider Physician Assistant Medical
DX: R79.89 Other specified abnormal findings of blood chemistry (principal); K76.0 Fatty (change of) liver, not elsewhere classified
CPT/HCPCS: 76700

== ENCOUNTER 2020-02-21 12:35 | Outpatient (CLI) | payer BC, SELFPAY ==
--- NOTE | 2020-02-21 12:50 | ECHO_ITS ---
Patient Info Name: Bhargav West Age: 49 years : 1970 Gender: Male Ht: 75 in Wt: 300 lbs BSA: 2.73 m2 HR: 79 bpm BP: 160 / 104 mmHg Technical Quality: Fair Exam Date: 02/21/2020 1:07 PM Exam Location: [facility] Patient Status: Outpatient Admit Date: 02/21/2020 Staff Ordering Physician: Princess Vásquez PAC Sheet Tailer: Jose A Stafford RDCS Attending Provider: Princess Vásquez Referring Physician: Fahad PEÑA; Exam Type: CA echo doppler color flow Study Info Indications R94.31 - Abnormal electrocardiogram ECG EKG Strain analysis performed. Complete two-dimensional, color flow and Doppler transthoracic echocardiogram is performed. Summary 1. Complete two-dimensional, color flow and Doppler transthoracic echocardiogram is performed. 2. Left ventricular chamber dimension is normal. 3. Left ventricular systolic function is normal, estimated at 55-60%. 4. There is mildly increased left ventricular wall thickness. 5. The left ventricular diastolic function is grade I diastolic dysfunction. 6. E/e' 7 is not elevated. 7. Global longitudinal strain is abnormal at -14.5%. 8. Left atrial chamber dimension is mildly enlarged. Left Ventricle E/e' 7 is not elevated. Global longitudinal strain is abnormal at -14.5%. Left ventricular chamber dimension is normal. Left ventricular systolic function is normal, estimated at 55-60%. There is mildly increased left ventricular wall thickness. The left ventricular diastolic function is grade I diastolic dysfunction. Right Ventricle Right ventricular chamber dimension is normal. Right ventricular systolic function is normal. Left Atria Left atrial chamber dimension is mildly enlarged. Right Atria Right atrial chamber dimension is normal. Aortic Valve The aortic valve is trileaflet. There is no aortic valve stenosis. There is no aortic valve regurgitation. Pulmonic Valve There is no pulmonic regurgitation. Mitral Valve There is no mitral valve stenosis. There is no mitral valve regurgitation. Tricuspid Valve There is no tricuspid valve regurgitation. Pericardium/Pleural There is no pericardial effusion. Inferior Vena Cava Normal inferior vena cava with >50% collapse upon inspiration consistent with normal right atrial pressure, 5 mmHg. Aorta The aortic root size at the sinus of Valsalva is normal. Left Ventricular Outflow Tract Name Value Normal LVOT 2D LVOT Diameter 2.4 cm LVOT Doppler LVOT Peak Gradient 3 mmHg LVOT Mean Gradient 2 mmHg LVOT VTI 19 cm LVOT VTI/AV VTI Ratio 0.8 LVOT Stroke Volume 85 ml LVOT CO 6.6 l/min LVOT CI 2.4 l/min/m2 Mitral Valve Name Value Normal MV Doppler
== END 2020-02-21 12:36 | disposition home or self-care (01) ==
LOC: ANHCARD 12:40
PROVIDERS: PCP Family Medicine; Visit Provider Physician Assistant Medical
DX: R94.31 Abnormal electrocardiogram [ECG] [EKG] (principal); I45.10 Unspecified right bundle-branch block
CPT/HCPCS: 93306

== ENCOUNTER 2020-03-14 00:17 | Outpatient (CLI) | payer BC, SELFPAY ==
[2020-03-14 17:16] LABS: SARS-CoV-2 RNA PCR Negative
== END 2020-03-14 00:18 | disposition home or self-care (01) ==
LOC: ANHCOVIDDT 00:17
PROVIDERS: PCP Family Medicine; Visit Provider Internal Medicine Critical Care Medicine
DX: R68.89 Other general symptoms and signs (principal); Z20.822 Contact with and (suspected) exposure to COVID-19
CPT/HCPCS: C9803; U0003; U0005

== ENCOUNTER 2020-03-16 08:42 | Outpatient (CLI) | payer BC, SELFPAY ==
--- NOTE | 2020-04-11 19:36 | WPDSLEEPSTUD ---
Sleep Study Date of Study: 04/13/20 Ordering Provider: Matthew Ching MD Interpreting Physician: Maliha Trinh MD Sleep Study Type: Split Polysomnogram Height: 1.88 m Weight: 136.078 kg Body Mass Index: 38.5 Neck Circumference: 48.26 cm [place]: 14 Reason for Sleep Study Loud snoring, excessive daytime sleepiness Split night study 02/28/2011; severe JEMIMA with AHI 45.9, heavy snoring and severe oxygen desaturations, 8 cm was marginally adequate. 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 He had a sleep study 10 years ago and could not tolerate CPAP at that time. He had severe apnea. He had COVID-19 in December 2019. While he was hospitalized it was made clear to him that he needed to get his apnea treated there is a family history with his late father and his mother both having sleep apnea. He constantly snores as constantly loud enough that others complain about. He does not awaken at night with heartburn, belching or coughing. He does not awaken from sleep feeling short of breath. He does not have trouble sleep with a cold. He does not gasp for breath at night. He constantly has breathing problems at night reported to him by others. He does not sweat excessively at night or notices heart pounding or beating irregularly at night. He frequently falls asleep during the day, frequently involuntarily but never while driving. he does not fall asleep while exerting physical effort. He does not have loss of muscle tone with strong emotion. He occasionally has daytime difficulties due to excessive sleepiness. He does not feel paralyzed on waking or falling asleep and does not have vivid dreamlike scenes upon awakening or falling asleep. He is never a free to go to sleep. He does not have nightmares. He rarely remembers his dreams. He occasionally has racing thoughts. He rarely feels sad depressed or anxious. He frequently has muscular tension. He occasionally notices parts of his body jerking. He does not kick at night, does not have crawling or aching feelings in his legs or have any kind of leg pain at night. He does not have morning jaw pain. He does not grind his teeth during sleep. He occasionally is bothered by pain during the day but never is awakened by pain at night. He constantly wakes up feeling stiff in the morning occasionally with sore achy muscles, constantly with pain in the neck and spine. He has dizziness, palpitations, fatigue, headaches, concentration difficulties. Normal bedtime is 9:00 p.m. falling asleep immediately. 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 His normal wake up time is 4:30 a.m.. His length of wakefulness at night depends on the reason for waking. On the weekends he also goes to bed at 9:00 p.m. but wakes at 5:30 a.m.. He estimates getting 6-7 hours of sleep at night although he constantly feels tired during the day. He takes naps in the afternoon or evening. A short nap may be refreshing. Habits: Smoked tobacco 15 years ago. Coffee 3-4 cups per day. Occasional alcohol. No recreational drugs. [facility] Past Medical History Medical History (Updated 04/11/20 @ 19:57 by Maliha Trinh MD) BMI 37.0-37.9, adult BMI 39.0-39.9,adult Hypertension Obstructive sleep apnea Seasonal allergies Family History Family History Mother Hypertension Family history of diabetes mellitus in first degree relative Grandparent Hypertension Malignant neoplasm of prostate Family history of lung cancer Family history of coronary artery disease Diabetes mellitus Father Family history of coronary artery disease Other Family history of malignant neoplasm of kidney Social History Social History Smoking status: Former smoker Alcohol intake: current Drinks per week
[2020-04-11 19:56] VITALS: BMI 38.5
== END 2020-03-16 08:43 | disposition home or self-care (01) ==
LOC: ANHCSM 08:45
PROVIDERS: PCP Family Medicine; Visit Provider Family Medicine
DX: G47.00 Insomnia, unspecified (principal); G47.33 Obstructive sleep apnea (adult) (pediatric)
CPT/HCPCS: 95811